=== PATIENT | female | born 1970 | race Two or more races ===

== ENCOUNTER 2023-05-02 15:20 | Outpatient (REF) | payer BC, SELFPAY ==
--- NOTE | ~2023-05-02 | US_ITS ---
EXAMINATION: US PELVIS, examination performed transvaginally and transabdominally CLINICAL INFORMATION: Postmenopausal bleeding in a 52-year-old female LMP 3 years ago COMPARISON: None available. TECHNIQUE: Ultrasound of the pelvis is performed using both transabdominal and transvaginal transducers along with Doppler. Transvaginal imaging is performed due to inadequate visualization transabdominally. FINDINGS: Uterus: The uterus is anteverted and measures 10.0 x 5.0 x 6.0 cm. The double wall endometrial thickness is 0.5 mm. There is subchondral uterine fibroid measured 2.7 x 2.5 x 3.1 cm . Adnexa: Both ovaries are visualized. There is normal color flow to the adnexa. There is no ovarian torsion. Right ovary measures 2.9 x 1.8 x 1.8 cm. With a volume of 5.0 cm and complex collection in the right adnexa. Left ovary measures 3.0 x 2.0 x 2.3 cm. With a volume of 7.0 well. There is complex cyst versus mass in left adnexa measured 2.0 x 1.5 x 1.8 cm There is moderate amount of pelvic fluid. US/US pelvic and transvaginal IMPRESSION: Complex fluid collection in the right adnexa and cul-de-sac fluid multiple calcifications in the uterus. Uterine fibroid. Complex mass versus cyst in left adnexa
== END 2023-05-02 15:21 | disposition home or self-care (01) ==
LOC: HO.US 15:20
PROVIDERS: PCP Registered Nurse; Visit Provider Advanced Practice Midwife
DX: N95.0 Postmenopausal bleeding (principal)
CPT/HCPCS: 76830; 76856

== ENCOUNTER 2023-05-08 07:48 | Outpatient (REF) | payer BC, SELFPAY ==
--- NOTE | ~2023-05-08 | MM_ITS ---
EXAMINATION: MM SCREENING DIGITAL BREAST TOMOSYNTHESIS, BILATERAL CLINICAL INFORMATION: Screening. Asymptomatic. The lifetime risk of breast cancer based on the Tyrer-Cuzick Model is 13.1%. COMPARISON: Mammography: None TECHNIQUE: Digital breast tomosynthesis is performed in both the craniocaudal and mediolateral oblique views along with computer-aided detection (CAD). Synthesized 2D images are generated from the tomosynthesis. FINDINGS: The breasts are heterogeneously dense, which may obscure small masses (ACR BI-RADS breast composition Category c). There are no significant masses, abnormal calcifications, or other abnormalities. MM/MM tomosynthesis screening BI IMPRESSION: No mammographic evidence of malignancy. ASSESSMENT: BI-RADS 1: Negative RECOMMENDATION: Routine annual mammography screening. This patient's information was entered into a reminder system with a target due date for their next mammogram.
== END 2023-05-08 07:49 | disposition home or self-care (01) ==
LOC: HO.MAMMO 07:48
PROVIDERS: Visit Provider Advanced Practice Midwife
DX: Z12.31 Encounter for screening mammogram for malignant neoplasm of breast (principal)
CPT/HCPCS: 77063; 77067

== ENCOUNTER 2023-08-23 07:53 | Outpatient (AMB) | payer BC, SELFPAY ==
[2023-08-23 08:07] VITALS: BP 116/68; BMI 30.7
--- NOTE | 2023-08-23 08:07 | A.OFFVIS_ITS ---
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 Co testing was done in 05/11 showed was negative for intraepithelial lesions, HPV E6/E7 positive, HPV 16 positive, HPV 18/45 Last mammogram was done in 05/11 was BI-RADS 1 Ultrasound of the pelvis done in 05/11 showed the following: Uterus: The uterus is anteverted and measures 10.0 x 5.0 x 6.0 cm. The double wall endometrial thickness is 0.5 mm. There is subchondral uterine fibroid measured 2.7 x 2.5 x 3.1 cm . Adnexa: Both ovaries are visualized. There is normal color flow to the adnexa. There is no ovarian torsion. Right ovary measures 2.9 x 1.8 x 1.8 cm. With a volume of 5.0 cm and complex collection in the right adnexa. Left ovary measures 3.0 x 2.0 x 2.3 cm. With a volume of 7.0 well. There is complex cyst versus mass in left adnexa measured 2.0 x 1.5 x 1.8 cm There is moderate amount of pelvic fluid. [facility] Medical History Asthma Gastritis Surgical History H/O colonoscopy Hx of adenoidectomy Hx of tonsillectomy Family History Mother HTN (hypertension) Uterine cancer Father No problems noted. Social History Household Members: Significant Other Alcohol intake: current Patient Tobacco Use Status: Never used Tobacco Current occupational status: employed Current occupation: [employer] x 2-3years Sexual orientation: Straight/Heterosexual Gender identity: Female Female Reproductive History Menstrual Total pregnancies: 0 Review of Systems Const All systems reviewed & are unremarkable except as noted in HPI and below Physical Exam Vital Signs: BMI result Body Mass Index 30.7 General: Yes no CVA tenderness External Female Exam: normal external appearance and normal appearance of the urethra Speculum Exam - Vagina: normal appearance of the vagina, normal palpation, no lesions and no masses Speculum Exam - Cervix: normal appearance of the cervix, normal palpation, no lesions, no masses and nontender Bimanual exam- vagina & uterus: normal bimanual exam, normal palpation, uterine size normal, normal palpation, uterine shape normal, No Cervical tenderness present and non-tender Bimanual Exam- Adnexa, other: normal adnexae Back/Spine/Pelvis Back: no CVA tenderness Office Procedures Colposcopy Before the procedure was started discussed with the patient the procedure, alternatives & all the risks associated with the procedure (bleeding, infection, injury to vagina, bladder, vessels, possible need for transfusion with all its risks) then patient signed the consent UPT done in the office & negative Pap smear = in [place]/HPV E6/E7 positive, HPV 16 positive, HPV 18/45 negative Speculum inserted, acetic acid used Colposcopy done Transformation zone seen, acetowhite lesions identified at 5+6+7+9+11+12+1+3 o?clock, cervical biopsies taken from 5+6+7+9+11+12+1+3 o?clock, ECC done afterwards. Vaginoscopy of the upper vagina showed no evidence of any aceto-white lesions Monsel solution used for hemostasis. The patient tolerated well . At the end the patient was instructed to call if temp>100.4, abdominal pain, n/v, bleeding; The patient was given the following instructions: nothing per vagina, no intercourse or bath tub use. All questions answered the patient verbalized understanding. Instructed the patient to make an appointment in 2 weeks for follow-up This note was generated with a voice recognition program. Some errors may have been overlooked during the review of this note. Sometimes these errors may affect the content or meaning of a given sentence. [id number] of cervix including upper vagina with biopsy and ECC Procedure code (CPT) selection complete Assessment & Plan Assessment & Plan (1) Postmenopausal bleeding: Comment: Endometrial stripe 5 mm by ultrasound Code(s): N95.0 - Postmenopausal bleeding Plan: Discussed with the patient the pelvic ultrasound findings, the endometrial stripe thickenss measured by ultrasound was more than 4mm. The negative predictive value, positive predictive value, Sensitivity, specificity of using ultrasound measurement of endometrial stripe to detecting endometrial pathology including hyperplasia , polyp or cancer were discussed with the patient. Recommended to the patient that the next step is an endometrial sampling via hysteroscopy D&C possible polypectomy versus endometrial biopsy to r/o endometrial pathology including hyperplasia or cancer. All the pros and cons risks and benefits of each approach were discussed with the patient, the patient decided to go ahead with endometrial biopsy;attempted EMB could not be tolerated by the patient, the procedure was aborted per patient request, will proceed with scheduling hysteroscopy D&C possible polypectomy/myomectomy next visit after checking the pathology of the cervical biopsy/ECC and the results of the follow- up ultrasound. Instructions given the patient to schedule a 2 week preop visit. (2) Uterine myoma: Code(s): D25.9 - Leiomyoma of uterus, unspecified Plan: Discussed with the patient the findings on pelvic ultrasound & the risk of myosarcoma; discussed with the patient the options of treatment including expectant management versus hysterectomy; the pros and cons, risks benefits of each approach were discussed with the patient including the fact that in cases of myosarcoma, surgical treatment can lead to early diagnosis and positively affects the prognosis; Since last ultrasound was 3 months ago, will repeat pelvic ultrasound. Instructions given the patient to schedule a 2 week ultrasound follow-up appointment to discuss different options of treatment. All questions answered, the patient verbalized understanding and agreed with the plan . (3) Adnexal mass: Code(s): N94.89 - Other specified conditions associated with female genital organs and menstrual cycle Plan: Discussed with the patient the complex ovarian cyst by ultrasound. Discussed with the patient the Ultrasound findings, the main limitation of transvaginal ultrasonography alone as a diagnostic tool to distinguish benign from malignant masses relates to its lack of specificity and low positive predictive value for cancer. The differential diagnosis discussed with the patient includes the following but not limited to: benign and malignant gynecological and non-gynecological causes. Laboratory evaluation include UPT and GC/CT. Since ultrasound was done in 6/23 repeat pelvic ultrasound if persistent abnormalities will proceed with MRI of the pelvis and tumor markers. (4) Cervical high risk HPV (human papillomavirus) test positive: Code(s): R87.810 - Cervical high risk human papillomavirus (HPV) DNA test positive Plan: Discussed with the patient the result of her pap, positive high-risk HPV, its significance, risk of progression, persistence, and regression if untreated. the false positive/negative rate being a screening test, the need for diagnostic test -colposcopy, biopsy, endocervical curettage. The patient verbalized understanding and agreed with the plan, all questions answered. Colposcopy/ECC and biopsy done, see procedure note. Orders: Orders US pelvic and transvaginal Today D25.9 - Leiomyoma of uterus, unspecified, N94.89 - Other specified conditions associated with female genital organs and menstrual cycle AMB Colposcopy Today R87.810 - Cervical high risk human papillomavirus (HPV) DNA test positive Coding Level of Care Code New Pt Level 3 (81091) Procedure Only Diagnoses Postmenopausal bleeding N95.0 Uterine myoma D25.9 Adnexal mass N94.89 Cervical high risk HPV (human papillomavirus) test positive R87.810 CPT Codes Colposcopy - CPT: 77376-Mdphcptye of cervix including upper vagina with biopsy and ECC ([id number])
== END 2023-08-23 08:52 | disposition home or self-care (01) ==
PROVIDERS: PCP Registered Nurse; Visit Provider Obstetrics & Gynecology
DX: N95.0 Postmenopausal bleeding (principal); D25.9 Leiomyoma of uterus, unspecified; N94.89 Other specified conditions associated with female genital organs and menstrual cycle; R87.810 Cervical high risk human papillomavirus (HPV) DNA test positive
CPT/HCPCS: 57454; 99203

== ENCOUNTER 2023-08-23 07:53 | Outpatient (REF) | payer BC, SELFPAY | END 2023-08-23 07:54 | disposition home or self-care (01) | LOC: HO.LNP 07:53 | PROVIDERS: PCP Registered Nurse; Visit Provider Obstetrics & Gynecology | DX: R87.810 Cervical high risk human papillomavirus (HPV) DNA test positive (principal); N95.0 Postmenopausal bleeding; D25.9 Leiomyoma of uterus, unspecified; N94.89 Other specified conditions associated with female genital organs and menstrual cycle | CPT/HCPCS: 57454; 88305 ==

== ENCOUNTER 2023-09-24 11:04 | Outpatient (REF) | payer BC, SELFPAY ==
--- NOTE | ~2023-09-24 | US_ITS ---
EXAMINATION: US PELVIS CLINICAL INFORMATION: Postmenopausal bleeding. COMPARISON: 05/02/2023 TECHNIQUE: Ultrasound of the pelvis is performed using both transabdominal and transvaginal transducers along with Doppler. Transvaginal imaging is performed due to inadequate visualization transabdominally. FINDINGS: The uterus is anteverted, heterogeneous and measures 6.8 x 3.8 x 4.7 cm, volume 63.59 mL. The endometrium appears heterogeneous with approximate double wall thickness of 0.2 cm, although evaluation limited due to uterine heterogeneity. Small amount of free fluid in the pelvis. Echogenic foci scattered throughout the uterus characteristic of calcifications, possibly related to fibroid change. A 1.1 x 0.9 x 0.8 cm fundal fibroid previously measured 2.7 x 2.5 x 3.1 cm. Small 4 mm cystic area at the uterine fundus. Right ovary measures 1.6 x 1.1 x 1.4 cm, volume 1.3 mL, and is unremarkable. Left ovary measures 2.5 x 1.3 x 1.5 cm, volume 2.6 mL, and is unremarkable. US/US pelvic and transvaginal IMPRESSION: 1. Fibroid uterus. 2. Endometrium appears heterogeneous with approximate double wall thickness of 0.2 cm, although evaluation limited due to uterine heterogeneity. Gynecologic consultation recommended to determine further management for this patient with postmenopausal bleeding. 3. Unremarkable bilateral ovaries. 4. Small amount of free fluid in the pelvis.
== END 2023-09-24 11:05 | disposition home or self-care (01) ==
LOC: HO.US 11:04
PROVIDERS: PCP Registered Nurse; Visit Provider Obstetrics & Gynecology
DX: N94.89 Other specified conditions associated with female genital organs and menstrual cycle (principal); D25.9 Leiomyoma of uterus, unspecified
CPT/HCPCS: 76830; 76856

== ENCOUNTER 2023-10-08 07:37 | Outpatient (AMB) | payer BC, SELFPAY ==
--- NOTE | 2023-10-08 07:45 | MHC.OFFVIS ---
Intake Vital Signs 10/08/23 07:46 Height 5 ft 2 in Weight 167 lb 8.821 oz BMI 30.6 BP 120/76 Intake Visit Reasons: US Follow up/Pre-Op Food Beverage Server Required: Yes Food Beverage Server Language: Support Services Coordinator Name: Anusha THORNTON Information Interpreted: non-clinical & clinical Manager Software Development: Manager Software Development Present Allergies No Known Allergies Allergy (Verified 10/08/23 07:48) Is last menstrual period known: Yes Last menstrual period: 09/16/20 Post menopausal: Yes Patient : No Do you need a note to return to daycare/school/sports/work: Yes (for surgery on sunday) HPI HPI Comments History of Present Illness Details Presenting post colpo for follow-up and for ultrasound follow-up. The patient is doing well with no complaints. The pathology showed the following: A. Endocervix, curettage: Few superficial strips of endocervical and squamous epithelium within normal limits; mucoinflammatory material. B. Cervix, 1 o'clock, biopsy: Cervical transformation zone mucosa within normal limits. C. Cervix, 3 o'clock, biopsy: Mildly inflamed squamous mucosa with reactive changes; no endocervical epithelium present. D. Cervix, 6 o'clock, biopsy: Mildly inflamed squamous and endocervical mucosa with reactive changes. E. Cervix, 7 o'clock, biopsy: Mildly inflamed squamous and endocervical mucosa with reactive changes. F. Cervix, 9 o'clock, biopsy: Mildly inflamed squamous and endocervical mucosa with reactive changes. G. Cervix, 11 o'clock, biopsy: Mildly inflamed squamous and endocervical mucosa with reactive changes. H. Cervix, 12 o'clock, biopsy: Mildly inflamed squamous mucosa with reactive changes; no endocervical epithelium present Pelvic ultrasound repeated showed the following: The uterus is anteverted, heterogeneous and measures 6.8 x 3.8 x 4.7 cm, volume 63.59 mL. The endometrium appears heterogeneous with approximate double wall thickness of 0.2 cm, although evaluation limited due to uterine heterogeneity. Small amount of free fluid in the pelvis. Echogenic foci scattered throughout the uterus characteristic of calcifications, possibly related to fibroid change. A 1.1 x 0.9 x 0.8 cm fundal fibroid previously measured 2.7 x 2.5 x 3.1 cm. Small 4 mm cystic area at the uterine fundus. Right ovary measures 1.6 x 1.1 x 1.4 cm, volume 1.3 mL, and is unremarkable. Left ovary measures 2.5 x 1.3 x 1.5 cm, volume 2.6 mL, and is unremarkable. [facility] Medical History Asthma Gastritis Surgical History H/O colonoscopy Hx of adenoidectomy Hx of tonsillectomy Family History Mother HTN (hypertension) Uterine cancer Father No problems noted. Social History Household Members: Significant Other Alcohol intake: current Patient Tobacco Use Status: Never used Tobacco Current occupational status: employed Current occupation: [employer] x 2-3years Sexual orientation: Straight/Heterosexual Gender identity: Female Female Reproductive History Menstrual Date of last menstrual period: 09/16/20 Total pregnancies: 2 Full term: 2 Review of Systems Card Reports as per HPI and Reports no additional complaints Resp Reports as per HPI and Reports no additional complaints GI Reports as per HPI and Reports no additional complaints Reports as per HPI Physical Exam Vital Signs: Last Vital Signs BP 120/76 10/08/23 07:46 BMI result Body Mass Index 30.6 Const General: cooperative, healthy appearing and comfortable Chest Chest palpation & inspection: normal inspection of the chest and normal palpation of entire chest wall Breast/axilla inspection: normal inspection of the breasts and normal inspection of the axillae Breast/axilla palpation: normal palpation of the breasts, normal palpation of the axillae and no axillary lymphadenopathy Resp Effort & Inspection: normal respiratory effort Auscultation: clear to auscultation bilaterally Percussion: percussion normal Cardio Palpation: normal PMI Rate: regular rate Rhythm: regular rhythm Heart sounds: no murmurs and no rubs Peripheral pulses: Peripheral pulses 2+ throughout GI Inspection: Yes normal to inspection Palpation (GI): Soft to palpation, nontender, no guarding, not rigid and No hepatosplenomegaly present Percussion: Yes normal to percussion Auscultation: normal bowel sounds Rectal Exam - Female: deferred Assessment & Plan Assessment & Plan (1) Adnexal mass: Code(s): N94.89 - Other specified conditions associated with female genital organs and menstrual cycle Plan: Discussed with the patient ultrasound findings showing the previously identified complex cyst has resolved. The patient was instructed to call if symptoms recur. All questions were answered the patient verbalized understanding. (2) Postmenopausal bleeding: Code(s): N95.0 - Postmenopausal bleeding Plan: Endometrial stripe measured previously was 5 mm, recent ultrasound endometrial type measure 2 mm although evaluation limited due to uterine heterogeneity Discussed with the patient the pelvic ultrasound findings, the endometrial stripe thickenss measured by ultrasound was more than 4mm on previous ultrasound and questionable 2 mm with inadequate measurement with a recent ultrasound. The negative predictive value, positive predictive value, Sensitivity, specificity of using ultrasound measurement of endometrial stripe to detecting endometrial pathology including hyperplasia , polyp or cancer were discussed with the patient. Recommended to the patient that the next step is an endometrial sampling via hysteroscopy D&C possible polypectomy versus endometrial biopsy to r/o endometrial pathology including hyperplasia or cancer. All the pros and cons risks and benefits of each approach were discussed with the patient, endometrial biopsy being less invasive, office procedure with less sensitivity and inability diagnose a polyp and removal versus hysteroscopy done under anesthesia more invasive more sensitive to endometrial cancer and possibility of diagnosing and endometrial polyp with the possibility of polypectomy. All questions were answered pt verbalized understanding and decided to proceed with hysteroscopy D&C possible polypectomy Discussed with the patient the procedure , all benefits and risks including but not limited to inability to complete the procedure , bleeding, infection, possible need for blood transfusion with all its risk ( HIV,syphilis, Hepatitis, anaphylaxis shock, others..), injury to bladder, rectum, possible need for laparoscopy/laparotomy or hysterectomy. The patient verbalized understanding and signed the consent. Instructions given the patient to schedule a 2 week postoperative appointment (3) Cervical high risk HPV (human papillomavirus) test positive: Code(s): R87.810 - Cervical high risk human papillomavirus (HPV) DNA test positive Plan: Discussed with the patient the pathology results of the colposcopy biopsies & endocervical curettage ( negative). Discussed with the patient the sensitivity specificity, positive and negative predictive value in detecting cervical cancer in addition discussed the regression, persistence and progression rates. Recommended co-testing in 12 months, if cytology and or HPV are abnormal will proceed was colposcopy biopsy and endocervical curettage. Instructions given to the patient to schedule a co test appointment in 1 year. All questions answered the patient verbalized understanding. Coding Level of Care Code Est Pt Level 3 (20696) Diagnoses Adnexal mass N94.89 Postmenopausal bleeding N95.0 Cervical high risk HPV (human papillomavirus) test positive R87.810
[2023-10-08 07:46] VITALS: BP 120/76; BMI 30.6
== END 2023-10-08 08:16 | disposition home or self-care (01) ==
PROVIDERS: PCP Registered Nurse; Visit Provider Obstetrics & Gynecology
DX: N94.89 Other specified conditions associated with female genital organs and menstrual cycle (principal); N95.0 Postmenopausal bleeding; R87.810 Cervical high risk human papillomavirus (HPV) DNA test positive
CPT/HCPCS: 99213

== ENCOUNTER → 2023-10-08 07:37 | Outpatient (BNVA) | payer BC, SELFPAY | PROVIDERS: PCP Registered Nurse; Visit Provider Obstetrics & Gynecology ==

== ENCOUNTER 2023-12-03 11:01 | Outpatient (AMB) | payer BC, SELFPAY ==
--- NOTE | 2023-12-03 11:04 | A.OFFVIS_ITS ---
Intake Vital Signs 12/03/23 11:05 Height 5 ft 2 in Weight 167 lb BMI 30.5 BP 118/70 Intake Visit Reasons: Pre-op Housing Relocation Required: Yes Housing Relocation Language: Mobility Architect Manager Name: Cecily [id number] Material Coordinator: Material Coordinator Present Allergies No Known Allergies Allergy (Verified 12/03/23 11:08) Is last menstrual period known: No Post menopausal: Yes Patient : No Do you need a note to return to daycare/school/sports/work: Yes (for surgery on sunday) HPI HPI Comments History of Present Illness Details Present discussed the pelvic ultrasound results which showed the following: The endometrium appears heterogeneous with approximate double wall thickness of 0.2 cm, although evaluation limited due to uterine heterogeneity. PFSH Medical History Asthma Gastritis Surgical History H/O colonoscopy Hx of adenoidectomy Hx of tonsillectomy Family History Mother HTN (hypertension) Uterine cancer Father No problems noted. Social History Household Members: Significant Other Alcohol intake: current Patient Tobacco Use Status: Never used Tobacco Patient : No Current occupational status: employed Current occupation: [employer] x 2-3years Sexual orientation: Straight/Heterosexual Gender identity: Female Female Reproductive History Menstrual Date of last menstrual period: 09/16/20 control method: none Total pregnancies: 2 Full term: 2 Review of Systems Card Reports as per HPI and Reports no additional complaints Resp Reports as per HPI and Reports no additional complaints GI Reports as per HPI and Reports no additional complaints Reports as per HPI Physical Exam Vital Signs: Last Vital Signs BP 118/70 12/03/23 11:05 BMI result Body Mass Index 30.5 Const General: cooperative, healthy appearing and comfortable Resp Effort & Inspection: normal respiratory effort Auscultation: clear to auscultation bilaterally Percussion: percussion normal Cardio Palpation: normal PMI Rate: regular rate Rhythm: regular rhythm Heart sounds: no murmurs and no rubs Peripheral pulses: Peripheral pulses 2+ throughout GI Inspection: Yes normal to inspection Palpation (GI): Soft to palpation, nontender, no guarding, not rigid and No hepatosplenomegaly present Percussion: Yes normal to percussion Auscultation: normal bowel sounds Rectal Exam - Female: deferred Assessment & Plan Assessment & Plan (1) Postmenopausal bleeding: Code(s): N95.0 - Postmenopausal bleeding Plan: Discussed with the patient the pelvic ultrasound findings, the endometrial stripe thickenss measured by ultrasound was more than 4mm on previous ultrasound and questionable 2 mm with inadequate measurement with a recent ultrasound. The negative predictive value, positive predictive value, Sensitivity, specificity of using ultrasound measurement of endometrial stripe to detecting endometrial pathology including hyperplasia , polyp or cancer were discussed with the patient. Recommended to the patient that the next step is an endometrial sa mpling via hysteroscopy D&C possible polypectomy versus endometrial biopsy to r/o endometrial pathology including hyperplasia or cancer. All the pros and cons risks and benefits of each approach were discussed with the patient, endometrial biopsy being less invasive, office procedure with less sensitivity and inability diagnose a polyp and removal versus hysteroscopy done under anesthesia more invasive more sensitive to endometrial cancer and possibility of diagnosing and endometrial polyp with the possibility of polypectomy. All questions were answered pt verbalized understanding and decided to proceed with hysteroscopy D&C possible polypectomy Discussed with the patient the procedure , all benefits and risks including but not limited to inability to complete the procedure , insufficient endometrial tissue for a complete evaluation of the endometrial cavity , bleeding, infection, possible need for blood transfusion with all its risk ( HIV,syphilis, Hepatitis, anaphylaxis shock, others..), injury to bladder, rectum, possible need for laparoscopy/laparotomy or hysterectomy. The patient verbalized understanding and signed the consent. Instructions given the patient to schedule a 2 week postoperative appointment Coding Level of Care Code Est Pt Level 3 (77559) Diagnoses Postmenopausal bleeding N95.0
[2023-12-03 11:05] VITALS: BP 118/70; BMI 30.5
== END 2023-12-03 11:27 | disposition home or self-care (01) ==
LOC: HO.HWS 11:02
PROVIDERS: PCP Registered Nurse; Visit Provider Obstetrics & Gynecology
DX: N95.0 Postmenopausal bleeding (principal)
CPT/HCPCS: 99213

== ENCOUNTER → 2023-12-03 11:01 | Outpatient (BNVA) | payer BC, SELFPAY | PROVIDERS: PCP Registered Nurse; Visit Provider Obstetrics & Gynecology ==

== ENCOUNTER 2023-12-21 10:44 | Day surgery (SDC) | payer BC, SELFPAY ==
[2023-10-24 10:11] VITALS: BMI 30.6
--- NOTE | 2023-10-24 14:08 | P.CONAN_ITS ---
HPI - Anesthesia Eval Consult details Narrative: 52yo F for D&C Hysteroscopy possible myomectomy/polypectomy, 12/07/23 PMFSH Active Problems Active Problems: All Active Problems (Updated 10/08/23 @ 07:56 by Minor Brown MD) Cervical high risk HPV (human papillomavirus) test positive (Acute) Adnexal mass (Acute) Uterine myoma (Acute) Postmenopausal bleeding (Acute) Past Medical History Medical History Asthma Gastritis Family History Family History Mother HTN (hypertension) Uterine cancer Father No problems noted. Surgical History Surgical History H/O colonoscopy Hx of adenoidectomy Hx of tonsillectomy Social History Social History Household Members: Significant Other Alcohol intake: current Patient Tobacco Use Status: Never used Tobacco Current occupational status: employed Current occupation: [employer] x 2-3years Sexual orientation: Straight/Heterosexual Gender identity: Female Meds Allergies Allergy/AdvReac Type Severity Reaction Status Date / Time No Known Allergies Allergy Verified 10/08/23 07:48 Home Medications Medication Instructions Recorded Confirmed Last Taken Type albuterol sulfate 90 mcg/actuation 2 puff inhalation Q4-6H PRN 01/18/23 01/18/23 Unknown History aerosol inhaler (ProAir HFA) Shortness Of Breath cetirizine 10 mg tablet (Zyrtec) 10 mg PO DAILY PRN 08/23/23 Unknown History Exam Height,Weight and Vital Signs: Height 5 ft 2 in Weight 75.977 kg Assessment and Plan Assessment Anesthesia Assessment: Chart Reviewed
[2023-12-19 07:49] VITALS: BMI 30.5
--- NOTE | 2023-12-20 10:30 | HO.ANESPROP2 ---
Documented by User: Monae Ivy NP 12/20/23 10:31 HPI - Anesthesia Eval Consult details Narrative: 53yo F for Dilation and Curettage Hysteroscopy possible myometomy/polypectomy PMFSH Active Problems Active Problems: All Active Problems (Updated 10/08/23 @ 07:56 by Minor Brown MD) Cervical high risk HPV (human papillomavirus) test positive (Acute) Adnexal mass (Acute) Uterine myoma (Acute) Postmenopausal bleeding (Acute) Past Medical History Medical History Asthma Gastritis Family History Family History Mother HTN (hypertension) Uterine cancer Father No problems noted. Surgical History Surgical History H/O colonoscopy Hx of adenoidectomy Hx of tonsillectomy Social History Social History Household Members: Significant Other Alcohol intake: current Alcohol intake frequency: does not drink Patient Tobacco Use Status: Never used Tobacco Are you DNR?: No Advance Directives: No Advance Directives Information Provided: Yes Recently lost weight without trying: No Nutrition Risks: No Nutritional Risk Patient : No FDLMP: menopausal Current occupational status: employed Current occupation: [employer] x 2-3years Sexual orientation: Straight/Heterosexual Gender identity: Female Meds Allergies Allergy/AdvReac Type Severity Reaction Status Date / Time No Known Allergies Allergy Verified 12/03/23 11:08 Home Medications Medication Instructions Recorded Confirmed Last Taken Type albuterol sulfate 90 mcg/actuation 2 puff inhalation Q4-6H PRN 01/18/23 01/18/23 Unknown History aerosol inhaler (ProAir HFA) Shortness Of Breath Exam Height,Weight and Vital Signs: Height 5 ft 2 in Weight 75.75 kg Assessment and Plan Assessment Anesthesia Assessment: Chart Reviewed Documented by User: Balbina Mercado MD 12/21/23 11:39 [facility] Past Medical History Medical History Asthma Gastritis Family History Family History Mother HTN (hypertension) Uterine cancer Father No problems noted. Family history of problems with anesthesia: No Surgical History Surgical History H/O colonoscopy Hx of adenoidectomy Hx of tonsillectomy History of Problems with Anesthesia: No Social History Social History Household Members: Significant Other Alcohol intake: current Alcohol intake frequency: does not drink Patient Tobacco Use Status: Never used Tobacco Are you DNR?: No Advance Directives: No Advance Directives Information Provided: Yes Recently lost weight without trying: No Nutrition Risks: No Nutritional Risk Patient : No FDLMP: menopausal Current occupational status: employed Current occupation: [employer] 2-3years Sexual orientation: Straight/Heterosexual Gender identity: Female Meds Allergies Allergy/AdvReac Type Severity Reaction Status Date / Time No Known Allergies Allergy Verified 12/03/23 11:08 Home Medications Medication Instructions Recorded Confirmed Last Taken Type albuterol sulfate 90 mcg/actuation 2 puff inhalation Q4-6H PRN 01/18/23 01/18/23 Unknown History aerosol inhaler (ProAir HFA) Shortness Of Breath Exam Airway Mallampati Class: I TM Dist: >3cm Neck ROM: Full Heart: rrr Lungs: cta Assessment and Plan Assessment Anesthesia Assessment: Anesthesia Plan Discussed Final Anesthetic Review Family History of Problems with Anesthesia: No History of Problems with Anesthesia: No NPO: Yes ASA Class: II Final Preanesthetic Review: No Changes in Pt Med Stat, Meds/Allgs Chart Reviewed and Consent Obtained/Reviewed Patient Risk: Intermediate Procedure Risk: Intermediate Anesthetic Plan Anesthetic Plan: GA Disposition: Standard PACU
[2023-12-21] VITALS (7 sets, daily range): BP systolic 111–141; BP diastolic 56–83; PULSE 46–75; RESP 12–19; TEMP 36.4–36.7; O2SAT 78–100; BMI 30.6
[2023-12-21] MEDS: Lactated Ringers 1,000 ML 100 ML IVCONT (11:13)
--- NOTE | 2023-12-21 12:11 | MHC.SHP ---
Pre-Procedural Eval Section A - 24 Hr Update-Section A only Date of Service: 12/21/23 The patient is an INPATIENT: No Changes since office visit: No Cold of Flu in the past 2 weeks, No New Medical Problems, No Changes in Medication and No Patient answered all questions The patient has been examined within 24 hours of the surgical procedure. The History & Physical has been completed within 30 days and I have reviewed it.: Yes Section B - Complete if H&P > 30 days Chief Complaint: Postmenopausal bleeding Allergies: Allergies Allergy/AdvReac Type Severity Reaction Status Date / Time No Known Allergies Allergy Verified 12/03/23 11:08 Plan Diagnosis/Plan: Unchanged I have reviewed the history and physical and performed a pertinent physical examination on my patient. No changes have occurred unless specified. Time Spent With Patient Time: Total time managing care of this patient today ____ minutes.
--- NOTE | 2023-12-21 13:13 | P.BOP_ITS ---
Brief Operative Note Date of Service: 12/21/23 Pre-op diagnosis: Postmenopausal bleeding Post-op diagnosis: same (Endocervical polyp) Procedure: Hysteroscopy D&C, Polypectomy Surgeon: Minor Brown MD Anesthesia: GLMA Was an Continuous Process Coffee Roaster used for this Procedure?: No Estimated blood loss (mL): 0 Pathology: other (Endometrial Scrapping. Endocervix Polyp) Condition: stable Disposition: PACU
--- NOTE | 2023-12-21 13:14 | W.PM.OPN ---
Operative Note Operative Note Date of Service: 12/21/23 Narrative: Preop Diagnosis: Postmenopausal bleeding Operation: Diagnostic Hysteroscopy, Dilataion & Curettage and endocervical polypectomy Post Op Diagnosis: Endocervical Polyp QBL: Minimal Anesthesia: GLMA Surgeon: Minor Brown MD Aws Solution Architect: None Complication: None Pathology: Endometrial Scrapings, endocervical polyp Procedure: The patient was put in the dorsal lithotomy position, scrubbed, and draped in the usual manner. A sterile speculum was inserted in the patient's vagina. The anterior lip of the cervix was grasped with a single tooth tenaculum. The cervix was dilated up to 5 mm, then the scope was inserted in the patient's uterus. Inspection revealed endocervical polyp. The Myosure Reach device was used; it was introduced through the operative channel and endocervical polypectomy done with no complications. The scope was then taken out from the uterine cavity, sharp curettings was carried on with minimal to moderate amount of tissues retrieved. At the end of the procedure, all instruments were taken out of the patient uterine and vaginal cavity. The single tooth tenaculum was removed and homeostasis was assured using pressure,. The patient tolerated the procedure well and was transferred to the PACU in a stable condition.
[2023-12-21] MEDS: oxyCODONE HCl Immed Release 5 MG TABLET PO (13:30)
== END 2023-12-21 14:15 | disposition home or self-care (01) ==
PROVIDERS: PCP Registered Nurse; Visit Provider Obstetrics & Gynecology
PROC: 0UDB8ZZ Extraction of Endometrium, Via Natural or Artificial Opening Endoscopic (ICD-10-PCS; CPT 58558; principal; 2023-12-21 12:30)
DX: N95.0 Postmenopausal bleeding (principal); N84.1 Polyp of cervix uteri; J45.909 Unspecified asthma, uncomplicated; Z79.899 Other long term (current) drug therapy
CPT/HCPCS: 58558; 88305; J1885; J2405; J2704; J3010

== ENCOUNTER → 2023-12-21 10:44 | Outpatient (BNV) | payer BC, SELFPAY | PROVIDERS: PCP Registered Nurse; Visit Provider Obstetrics & Gynecology | DX: N84.1 Polyp of cervix uteri (principal) | CPT/HCPCS: 58558 ==

== ENCOUNTER 2024-01-01 08:32 | Outpatient (AMB) | payer BC, SELFPAY ==
--- NOTE | 2024-01-01 08:43 | MHC.OFFVIS ---
Intake Vital Signs 01/01/24 08:47 Height 5 ft 2 in Weight 167 lb BMI 30.5 BP 110/72 Intake Visit Reasons: post op Level Vial Setter Required: Yes Level Vial Setter Language: Narcotics Detective Name: Anusha THORNTON Information Interpreted: non-clinical & clinical Accompanied by: Self / Same As Patient Allergies No Known Allergies Allergy (Verified 01/01/24 08:48) HPI HPI Comments History of Present Illness Details The patient is presenting post hysteroscopy D&C no complaints minimal vaginal bleeding no feverishness chills or abdominal pain. The pathology showed the following: A. Endometrium, curettage: Scant benign atrophic endometrium; no atypia or carcinoma. B. Endocervical polyp, resection: Fragments of benign inactive endometrium with benign smooth muscle, suggesting adenomyosis/adenomyoma, and fragments of benign mixed endometrial/endocervical polyp; no atypia or carcinoma PFSH Medical History Asthma Gastritis Surgical History H/O colonoscopy Hx of adenoidectomy Hx of tonsillectomy Family History Mother HTN (hypertension) Uterine cancer Father No problems noted. Social History Household Members: Significant Other Alcohol intake: current Alcohol intake frequency: does not drink Patient Tobacco Use Status: Never used Tobacco Current occupational status: employed Current occupation: [employer] x 2-3years Sexual orientation: Straight/Heterosexual Gender identity: Female Review of Systems Const All systems reviewed & are unremarkable except as noted in HPI and below Reports as per HPI and Reports no additional complaints GI Reports no additional complaints Reports no additional complaints Physical Exam Vital Signs: Last Vital Signs BP 110/72 01/01/24 08:47 BMI result Body Mass Index 30.5 Assessment & Plan Assessment & Plan (1) Postmenopausal bleeding: Code(s): N95.0 - Postmenopausal bleeding Plan: Discussed with the patient the results of the pathology. Discussed with the patient the sensitivity, specificity, positive and negative predictive value, of endometrial biopsy in detecting endometrial pathology including but not limited to endometrial hyperplasia, cancer and other pathology; instructed the patient to call in case vaginal bleeding bleeding recurs, the next step will be to proceed with further endometrial sampling evaluation to rule out endometrial pathology. All questions answered and the patient verbalized understanding and agreed with the plan. Coding Level of Care Code Est Pt Level 3 (46323) Diagnoses Postmenopausal bleeding N95.0
[2024-01-01 08:47] VITALS: BP 110/72; BMI 30.5
== END 2024-01-01 09:05 | disposition home or self-care (01) ==
LOC: HO.HWS 08:32
PROVIDERS: PCP Registered Nurse; Visit Provider Obstetrics & Gynecology
DX: N95.0 Postmenopausal bleeding (principal)
CPT/HCPCS: 99213

== ENCOUNTER → 2024-01-01 08:32 | Outpatient (BNVA) | payer BC, SELFPAY | PROVIDERS: PCP Registered Nurse; Visit Provider Obstetrics & Gynecology ==

== ENCOUNTER 2025-02-10 11:24 | Outpatient (REF) | payer BC, SELFPAY ==
[2025-02-13 14:54] LABS: HPV Genotype 16 Positive (Negative); HPV Genotype 18 Negative (Negative); HPV High Risk Negative (Negative)
== END 2025-02-10 11:25 | disposition home or self-care (01) ==
LOC: HO.LNP 11:24
PROVIDERS: PCP Registered Nurse; Visit Provider Obstetrics & Gynecology
DX: Z01.419 Encounter for gynecological examination (general) (routine) without abnormal findings (principal)
CPT/HCPCS: 87626; 88175

== ENCOUNTER 2025-02-10 11:24 | Outpatient (AMB) | payer BC, SELFPAY ==
--- NOTE | 2025-02-10 11:35 | A.OFFVIS_ITS ---
Vital Signs 02/10/25 11:39 Height 5 ft 2 in Weight 168 lb BMI 30.7 BP 116/72 Intake Visit Reasons: annual/DO NOT RS 2 Fitness Specialist Required: Yes Fitness Specialist Language: Medication Administration Professional Services: Fitness Specialist Present (in person) Fitness Specialist Name: HILLARY Lynn Information Interpreted: non-clinical & clinical Surgical Supply Assistant: Surgical Supply Assistant Present (HILLARY Lynn) Accompanied by: Self / Same As Patient Allergies No Known Allergies Allergy (Verified 02/10/25 11:40) Is last menstrual period known: No Post menopausal: Yes Patient : No HPI Comments Details: Presenting for annual exam. No complaints. Co testing was done in 05/11 showed was negative for intraepithelial lesions, HPV E6/E7 positive, HPV 16 positive, HPV 18/45 negative, colpo biopsy ECC were negative Last Mammogram were in 05/11, BI-RADS 1, the patient is scheduled next mammogram in few weeks Colonoscopy is scheduled in 05/13 [facility] Medical History (Updated 02/10/25 @ 11:44 by Minor Brown MD) Cervical high risk HPV (human papillomavirus) test positive Asthma Gastritis Surgical History H/O colonoscopy Hx of adenoidectomy Hx of tonsillectomy Family History Mother HTN (hypertension) Uterine cancer Father No problems noted. Social History Household Members: Significant Other Alcohol intake: current Alcohol intake frequency: does not drink Patient Tobacco Use Status: Never used Tobacco Patient : No Current occupational status: employed Current occupation: [employer] x 2-3years Sexual orientation: Straight/Heterosexual Gender identity: Female Female Reproductive History Menstrual Total pregnancies: 0 Date of last pap smear: 05/08/23 (+hpv) History of abnormal pap smear: Yes Date of Mammogram: 05/08/23 (bi rad 1) Review of Systems Const All systems reviewed & are unremarkable except as noted in HPI and below Card Reports as per HPI Resp Reports as per HPI GI Reports as per HPI and Reports no additional complaints Reports as per HPI Physical Exam Vital Signs: Last Vital Signs BP 116/72 02/10/25 11:39 BMI result Body Mass Index 30.7 Const General: cooperative, healthy appearing and comfortable Chest Chest palpation & inspection: normal inspection of the chest and normal palpation of entire chest wall Breast/axilla inspection: normal inspection of the breasts and normal inspection of the axillae Breast/axilla palpation: normal palpation of the breasts, normal palpation of the axillae and no axillary lymphadenopathy Resp Effort & Inspection: normal respiratory effort Auscultation: clear to auscultation bilaterally Percussion: percussion normal Cardio Palpation: normal PMI Rate: regular rate Rhythm: regular rhythm Heart sounds: no murmurs and no rubs Peripheral pulses: Peripheral pulses 2+ throughout GI Inspection: Yes normal to inspection Palpation (GI): Soft to palpation, nontender, no guarding, not rigid and No hepatosplenomegaly present Percussion: Yes normal to percussion Auscultation: normal bowel sounds Rectal Exam - Female: deferred General: Yes bladder normal to palpation External Female Exam: No lesion Speculum Exam - Vagina: normal appearance of the vagina, normal palpation, normal vaginal discharge and not erythematous Speculum Exam - Cervix: normal appearance of the cervix and normal palpation Bimanual exam- vagina & uterus: normal bimanual exam, normal palpation, uterine size normal, bladder normal to palpation, consistency normal and normal palpation Bimanual Exam- Adnexa, other: normal adnexae, no masses and no tenderness Assessment & Plan Assessment & Plan (1) Well woman exam: Code(s): Z01.419 - Encounter for gynecological examination (general) (routine) without abnormal findings Category: Medical Plan: Co testing done. Counseled the patient about the recommended dietary allowance of 1200 mg of Calcium & 600 IU of vitamin D. Mammogram scheduled in few weeks. Screening colonoscopy please schedule an 05/13 . The patient was instructed to perform monthly self-breast exams and schedule annual exam in a year. All questions answered and the patient verbalized understanding. Coding Level of Care Code Est Pt Prev Care 40-64y(82289) Diagnoses Well woman exam Z01.419
[2025-02-10 11:39] VITALS: BP 116/72; BMI 30.7
--- OUTSIDE RECORDS SUMMARY | 2025-02-10 14:09 | XMS_ITS | Clinical Summary ---
Author Organization [facility] Address [address] [place] [address] Care Team Providers Care Financial Service Professional Name Role Phone Unknown Primary Care Provider [phone] Allergies No known active allergies Medications Medication Sig Dispensed Refills Start Date End Date Status OMEprazole (PriLOSEC) 20 MG capsuleIndications:Ga stroesophageal reflux disease, unspecified whether esophagitis present Take 1 capsule (20 mg total) by mouth every morning before breakfast. 14 capsule 10/02/2024 Active Active Problems No known active problems Social History Tobacco Use Types Packs/Day Years Used Date Smoking Tobacco: Never Assessed Sex and Gender Information Value Date Recorded Sex Assigned at Not on file Gender Identity Not on file Sexual Orientation Not on file Last Filed Vital Signs Vital Sign Reading Time Taken Comments Blood Pressure 121/80 10/02/2024 6:28 PM EST Pulse 75 10/02/2024 6:28 PM EST Temperature 36.7 ??C (98 ??F) 10/02/2024 6:28 PM EST Respiratory Rate - - Oxygen Saturation 98% 10/02/2024 6:28 PM EST Inhaled Oxygen Concentration - - Weight - - Height - - Body Mass Index - - Plan of Treatment Health Maintenance Due Date Last Done Comments Hepatitis C Virus Screening 1972 HIV Screening 1985 DTaP/Tdap/Td Vaccines (1 - Tdap) 1991 Hepatitis B Vaccines (1 of 3 - 19+ 3-dose series) 1991 Pap Smear (Ages 21-65) 1993 Mammogram 2012 Colonoscopy 2017 Pneumococcal Vaccines 50+ (1 of 1 - PCV) 2022 Zoster (Shingles) Vaccine (1 of 2) 2022 Influenza Vaccine 06/19/2024 COVID-19 Vaccine ( - 2023-2 5 season) 2024 Pneumococcal Vaccine: [place]iat [place] (0-5 Years) and At-Risk Patients (6 to 49 Years) Aged Out No longer eligible b ased on patient's age to complete this topic Care Teams Financial Service Professional Relationship Specialty Start Date End Date Unknown Unknow Provider Address PCP - General 10/02/24
--- OUTSIDE RECORDS SUMMARY | 2025-02-10 14:09 | XMS_ITS | Clinical Summary ---
Author Organization [employer] Address [address] [place] [address] 7[address] [place] [address] Care Team Providers Care Kier Operator Name Role Phone Roro Stephens [facility] Primary Care Provider [phone] Allergies No known active allergies Medications sodium chloride ([place] Nasal [place]) 0.65 % nasal sprayIndication s:Acute mucoid otitis media of left ear 1-2 sprays on each nostril every 2-3 hours as needed for nasal congestion 30 mL 1 3 Active albuterol (Ventolin HFA) 108 (90 Base) MCG/ACT inhalerIndicati ons:COVID-19 virus infection Inhale 2 puffs every 4 (four) hours if needed for wheezing or shortness of breath. 18 g 2 3 Active evening primrose oil 500 MG Take 1 capsule by mouth in the morning. Active ibuprofen 600 MG tabletIndicatio ns:COVID-19 virus infection TAKE 1 TABLET BY MOUTH EVERY 6 HOURS NEEDED FOR PAIN OR FEVER OR HEADACHE 30 tablet 2 3 Active Active Problems Problem Noted Date Diagnosed Date Post-menopausal bleeding 06/15/2023 Overview (06/15/2023): 1. 05/02/2023 for episode of vaginal spotting at the beginning of April. Patient post menopausal x 3 years. Pap collected at time of visit NIL HPV +. Referred to [facility] Dr. Brown for PMB follow up and colpo for abnormal pap Assessment & Plan (06/26/2023 5:57 AM EDT): Reviewed indication for PMB with patient and typical steps of procedure Patient will follow up with [facility] as scheduled Mixed hyperlipidemia 05/18/2023 Overview (06/15/2023): ?? Managed with diet alone ?? ASCVD 1.7% 04/2023 Assessment & Plan (06/26/2023 5:58 AM EDT): ?? Well controlled with diet alone ?? Continue with current lifestyle recommendations Assessment & Plan (05/18/2023 12:02 PM EDT): ?? Repeat lipid panel today Healthcare maintenance 05/18/2023 Overview (05/18/2023): Mammo: 04/2023 Pap: 04/2023- NIL HPV+, referred to [facility] C-scope: Referred for screening 02/2022 BMD: Routine age 67 Asthma 03/08/2022 Overview (05/18/2023): ?? Albuterol ?? Singulair ?? Claritin ?? No hx of hospitalizations Assessment & Plan (05/18/2023 11:07 AM EDT): ?? Well controlled ?? Continue current regimen Family History Medical History Relation Name Comments Hypertension Mother Uterine cancer Mother Relation Name Status Comments Mother Social History Tobacco Use Types Packs/Day Years Used Date Smoking Tobacco: Never Passive Smoke Exposure: Never Smokeless Tobacco: Never Tobacco Cessation:Counseling Given: Not Answered Alcohol Use Standard Drinks/Week Comments Never 0 (1 standard drink = 0.6 oz pur e alcohol) Depression Answer Date Recorded Patient Health Questionnaire-9 Score 0 06/15/2023 Housing Stability Answer Date Recorded What is your housing situation today? I have carolina argueta 09/05/[address] you li ve. Do you have problems with any of the following? None of the above 09/05/2023 Food Insecurity Answer Date Recorded Within the past 12 months, y ou worried that your food would run out before you got money to buy more: Never True 09/05/2023 Within the past 12 months,th e food you bought just didn't last and you didn't have enough money to get more: Never True Transportation Answer Date Recorded In the past 12 months, has l ack of transportation kept you from medical appts, meetings, work or from getting things needed for daily living? No 09/05/2023 Utilities Answer Date Recorded In the past 12 months, has t he electric, gas, oil or water company threatened to shut off services in your home? No 09/05/2023 Depression Answer Date Recorded Patient Health Questionnaire-2 Score 0 06/15/2023 Comments No Sex and Gender Information Value Date Recorded Sex Assigned at Female 09/18/2022 10:40 AM EDT Legal Sex Female 10:40 AM EDT Gender Identity Female 09/18/2022 10:40 AM EDT Sexual Orientation Straight 09/18/2022 10 :40 AM EDT Last Filed Vital Signs Vital Sign Reading Time Taken Comments Blood Pressure 114/64 06/15/2023 3:28 PM EDT Pulse 60 06/15/2023 3:28 PM EDT Temperature 36.5 ??C (97.7 ??F) 06/15/2023 3:28 PM ED T Respiratory Rate 18 06/15/2023 3:28 PM EDT Oxygen Saturation 98% 06/15/2023 3:28 PM EDT Inhaled Oxygen Concentration - - Weight 77.7 kg (171 lb 6.4 oz) 06/15/2023 3:28 P M EDT Height 157.5 cm (5' 2 ) 06/15/2023 3:28 PM EDT Body Mass Index 31.35 06/15/2023 3:28 PM EDT Plan of Treatment Health Maintenance Due Date Last Done Comments CT Colonography 1972 FIT DNA/Cologuard 1972 FIT 1972 FOBT 1972 Sigmoidoscopy 1972 Pneumococcal Vaccine: Pediatrics (0 to 5 Years) and At-Risk Patients (6 to 49) Years) (1 of 2 - PCV) 1978 Alcohol/Substance Use Screening 1984 Family Planning (PISQ) 1987 DTaP/Tdap/Td Vaccines (1 - Tdap) 1991 Hepatitis B Vaccines (1 of 3 - 19+ 3-dose series) 1991 Pneumococcal Vaccine: 50+ Years (1 of 2 - PCV) 1991 Zoster Vaccines (1 of 2) 2022 Colonoscopy 05/03/2023 Colorectal Cancer Screening 05/03/2023 Depression Screening 06/15/2024 06/15/2023, 06/15/2023 SDOH Screening 06/15/2024 06/15/2023 Tobacco Screening 06/26/2024 06/26/2023 COVID-19 Vaccine (1 - 2023-2 5 season) 2024 Influenza Vaccine (#1) 2024 Cervical Cancer Screening 08/23/2024 HPV/Cotest 08/23/2024 05/02/2023, 05/02/2023 Pap Smear 08/23/2024 05/02/2023 Mammogram 05/08/2025 05/08/2023, 05/08/2023 RSV Patients and Patients Aged 60 years or older (1 - 1-dose 75+ series) 2047 HIV Screening Completed 03/08/2022 Hepatitis C Screening Completed 03/08/2022 HIB Vaccines Aged Out No longer eligi ble based on patient's age to complete this topic HPV Vaccines Aged Out No longer eligi ble based on patient's age to complete this topic Hepatitis A Vaccines Aged Out No long er eligible based on patient's age to complete this topic IPV Vaccines Aged Out No longer eligi ble based on patient's age to complete this topic Meningococcal Vaccine Aged Out No sujata augusta eligible based on patient's age to complete this topic RSV under 20 months Aged Out No longe r eligible based on patient's age to complete this topic Rotavirus Vaccines Aged Out No longer eligible based on patient's age to complete this topic Procedures Procedure Name Priority Date/Time Associated Diagnosis Comments BI MAMMOGRAM SCREENING BILATERAL Routine 05/08/2023 Breast cancer screening by mammogram HPV GENOTYPES 16,18/45 Routine 05/02/2023 9:52 AM EDT IMAGE-GUIDED PAP W/AGE BASED SCR,W/CT/NG/TRICH Routine 05/02/2023 9:52 AM EDT Postmenopausal bleeding Cervical cancer screening ZZZ HISTORICAL HEPATITIS C AB W/REFL TO HCV RNA, QN, PCR Routine 03/08/2022 10:41 AM EDT HIV 1/2 ANTIGEN/ANTIBODY, FOURTH GENERATION W/RFL Routine 03/08/2022 10:41 AM EDT from Last 3 Months or Most Recently Relevant to Health Maintenance Results * BI Mammogram Screening Bilateral (05/08/2023) Anatomical Region Laterality Modality Breast Bilateral Mammography 05/08/2023 Narrative 05/08/2023 2:55 PM EDT Birads 1 routine screening recommended, see scanned report us Amberly Huynh CNM IM BI PROCEDURES Final R esult * (ABNORMAL) Image-Guided Pap with Age-Based Screening??with CT/NG,??Trichomonas (05/02/2023 9:52 AM EDT) Comment [facility] Comment: This order for age-based cervical cancer and STI screening follows ACOG guidelines(PB 168, 140, QYV423). See individual assays for performing site location. Clinical Information: PM BLEEDING [employer] (powering [employer] [facility] LMP: NONE GIVEN [employer] (powering [employer] [facility] Prev. PAP: NONE GIVEN [facility] Prev. BX: NONE GIVEN [employer] (powering [employer] [facility] SOURCE: None given [employer]power[employer] [facility] Statement Of Adequacy: [employer] Comment: Satisfactory for evaluation. Endocervical/transformation zone component present. Interpretation/Re sult: Negative for intraepithelial lesion or malignancy. [facility] COMMENT: This Pap test has been evaluated with computer assisted technology. [facility] Cafe Cook: [facility]ella [facility] Comment: SL, CT(ASCP) CT screening location: [address] ??[address] Review Cafe Cook: [facility] Comment: JNA, CT(ASCP) CT screening location: [address] ??[address] (Always Message) Que [facility] Comment: EXPLANATORY NOTE: The Pap is a screening test for cervical cancer. It is not a diagnostic test and is subject to false negative and false positive results. It is most reliable when a satisfactory sample, regularly obtained, is submitted with relevant clinical findings and history, and when the Pap result is evaluated along with historic and current clinical information. HPV nRNA E6/E7 Detected(A) Not Detected [employer] Comment: Methodology: Rag Room Supervisor-Mediated Amplification This assay detects E6/E7 viral messenger RNA (mRNA) from 14 high-risk HPV types (16,18,31,33,35,39,45,51,52,56,58,59,66,68). Cervical sources are required for HPV testing. If a vaginal source from a patient who has had a total hysterectomy with removal of cervix was submitted, please contact the testing laboratory for alternative testing options. For additional information, please refer to http://Parkplatzking.Getui/faq/WRV921j4 (This link if provided for information/ educational purposes only.) Chlamydia trachomatis RNA, TMA, Urogenital NOT DETECTED NOT DETECTED [employer] Neisseria gonorrhoeae RNA, TMA, Urogenital NOT DETECTED NOT DETECTED [employer] (Always Message) Que [employer] Comment: The analytical performance characteristics of this assay, when used to test SurePath(TM) specimens have been determined by [facility]. The modifications have not been cleared or approved by the FDA. This assay has been validated pursuant to the CLIA regulations and is used for clinical purposes. For additional information, please refer to https://Parkplatzking.Getui/faq/YLJ339 (This link is being provided for information/ educational purposes only.) Trichomonas vaginalis, QL, TMA, PAP Vial NOT DETECTED NOT DETECTED [employer] Comment: The analytical performance characteristics of this assay have been determined by [facility]. The modifications have not been cleared or approved by the FDA. This assay has been validated pursuant to the CLIA regulations and is used for clinical purposes. For additional information, please refer to http://Parkplatzking.Getui/ faq/Trichomonastma (This link is being provided for information/ educational purposes only.) Pap Vial 05/02/2023 9:52 AM EDT 05/03/2023 4:20 AM EDT Amberly Huynh [facility] CYTOLOGY ORDERABLES F inal Result Performing Organization Address [facility] de Phone Number [facility] [address] [place] [address], [place] [address] [facility] [place] [employer] [address] [place] [address] * (ABNORMAL) HPV Genotypes 16,18/45 (05/02/2023 9:52 AM EDT) HPV 16 RNA DETECTED(A) NOT DETECTED [facility] [place] [employer] HPV 18/45 RNA NOT DETECTED NOT DETECTED [facility] [place] [employer] Comment: Methodology: Rag Room Supervisor Mediated Amplification Cervical sources are required for HPV testing. If a vaginal source from a patient who has had a total hysterectomy with removal of cervix was submitted, please contact the testing laboratory for alternative testing options. 05/02/2023 9:52 AM EDT 05/03/2023 4:20 AM EDT Amberly Huynh [facility] CYTOLOGY ORDERABLES F inal Result Performing Organization Address [facility] de Phone Number [facility] [address] [place] [address], [place] [place] [address] [facility] [place] [employer] [address] [place] [address] * HEPATITIS C AB W/REFL TO HCV RNA, QN, PCR (03/08/2022 10:41 AM EDT) HEPATITIS C ANTIBODY NON-REACT CARMINA NON-REACT [facility] INDEX 0.03 <1.00 [facility] Comment: ?? HCV antibody was non-reactive. There is no laboratory ?? evidence of HCV infection. ?? In most cases, no further action is required. However, if recent HCV exposure is suspected, a test for HCV RNA (test code 10510) is suggested. ?? For additional information please refer to http://education.Getui/faq/YJR69i9 (This link is being provided for informational/ educational purposes only.) ?? 03/08/2022 10:4 1 AM EDT [facility] GLOVE MACHINE OPERATOR HISTORICAL/NON ORDERABLE LABS Final Result Performing Organization Address [facility] de Phone Number [facility] [address] * HIV 1/2 ANTIGEN/ANTIBODY,FOURTH GENERATION W/RFL (03/08/2022 10:41 AM EDT) HIV-1/2 ANTIGEN AND ANTIBODIES, 4TH GENERATION W/ REFLEX NON-REACT CARMINA NON-REACT CARMINA [facility] Comment: HIV-1 antigen and HIV-1/HIV-2 antibodies were not detected. There is no laboratory evidence of HIV infection. ?? PLEASE NOTE: This information has been disclosed to you from records whose confidentiality may be protected by state law. ??If your state requires such protection, then the state law prohibits you from making any further disclosure of the information without the specific written consent of the person to whom it pertains, or as otherwise permitted by law. A general authorization for the release of medical or other information is NOT sufficient for this purpose. ? For additional information please refer to http://education.Getui/faq/EXG396 (This link is being provided for informational/ educational purposes only.) ? The performance of this assay has not been clinically validated in patients less than 2 years old. ?? 03/08/2022 10:4 1 AM EDT [facility] LAB BLOOD ORDERABLES Final Re sult Performing Organization Address [facility] de Phone Number [facility] [address] from Last 3 Months or Most Recently Relevant to Health Maintenance Insurance , [facility] [address] [place] [address] [facility] Care Teams Kier Operator Relationship Specialty Start Date End Date Roro Stephens FNP [address] [place] [address] PCP - General Family Medicine 02/09/22
--- OUTSIDE RECORDS SUMMARY | 2025-02-10 14:09 | XMS_ITS | Encounter Summary ---
Author Organization [employer] Address [address] [facility] 7t [place] [address] Care Team Providers Care Greens Planter Name Role Phone Roro Stephens VICE PRESIDENT PROCESS Primary Care Provider [phone] Encounter Details Date Type Department Care Team ([facility] st Contact Info) Description 08/28/2023 Orders Only [facility] [address] [place], [place] [phone] Mary Vuong RN [address] [place], [place] [phone] Social History Tobacco Use Types Packs/Day Years Used Date Smoking Tobacco: Never Passive Smoke Exposure: Never Smokeless Tobacco: Never Alcohol Use Standard Drinks/Week Comments Never 0 (1 standard drink = 0.6 oz pur e alcohol) Depression Answer Date Recorded Patient Health Questionnaire-9 Score 0 06/15/2023 Housing Stability Answer Date Recorded What is your housing situation today? I have carolinajanie argueta 08/25/[address] you li ve. Do you have problems with any of the following? None of the above 08/25/2023 Food Insecurity Answer Date Recorded Within the past 12 months, y ou worried that your food would run out before you got money to buy more: Never True 08/25/2023 Within the past 12 months,th e food you bought just didn't last and you didn't have enough money to get more: Never True 05/2023 Transportation Answer Date Recorded In the past 12 months, has l ack of transportation kept you from medical appts, meetings, work or from getting things needed for daily living? No 08/25/2023 Utilities Answer Date Recorded In the past 12 months, has t he electric, gas, oil or water company threatened to shut off services in your home? No 08/25/2023 Depression Answer Date Recorded Patient Health Questionnaire-2 Score 0 06/15/2023 Comments No Sex and Gender Information Value Date Recorded Sex Assigned at Female 09/18/2022 10:40 AM EDT Legal Sex Female 10:40 AM EDT Gender Identity Female 09/18/2022 10:40 AM EDT Sexual Orientation Straight 09/18/2022 10 :40 AM EDT documented as of this encounter Plan of Treatment Not on file documented as of this encounter Procedures Procedure Name Priority Date/Time Associated Diagnosis Comments US PELVIS TRANSVAGINAL Routine 09/24/2023 12:04 PM EST BIOPSY CERVIX Routine 08/23/2023 12:00 AM EDT documented in this encounter Results * US Pelvis Transvaginal (09/24/2023 12:04 PM EST) Anatomical Region Laterality Modality Pelvis Ultrasound 09/24/2023 12:0 4 PM EST Narrative 09/26/2023 7:43 AM EST ? [facility] ?[address] ?[place] [address] ? Ultrasound Report ? Signed ? Patient: Livan Snell ?MR ?? #: [id number] ? : 1970 ?Acct:[id number] ? Age/Sex: 52 / F ?ADM Date: 09/24/23 ? Loc: HO.US ? Attending Dr: Minor Brown MD ? Ordering Physician: Minor Brown MD ?? Date of Service: 09/24/23 ?? Procedure(s): US pelvic and transvaginal ?? Accession Number(s): [id number] ? cc: Roro Stephens VICE PRESIDENT PROCESS; Minor Brown MD ? EXAMINATION: ? US PELVIS ? CLINICAL INFORMATION: ? Postmenopausal bleeding. ? COMPARISON: ?? 05/02/2023 ? TECHNIQUE: ?? Ultrasound of the pelvis is performed using both transabdominal and ?? transvaginal transducers along with Doppler. Transvaginal imaging is ?? performed due to inadequate visualization transabdominally. ? FINDINGS: ?? The uterus is anteverted, heterogeneous and measures 6.8 x 3.8 x 4.7 ?? cm, volume 63.59 mL. ? The endometrium appears heterogeneous with approximate double wall ?? thickness of 0.2 cm, although evaluation limited due to uterine ?? heterogeneity. ? Small amount of free fluid in the pelvis. ? Echogenic foci scattered throughout the uterus characteristic of ?? calcifications, possibly related to fibroid change. ? A 1.1 x 0.9 x 0.8 cm fundal fibroid previously measured 2.7 x 2.5 x 3.1 ?? cm. Small 4 mm cystic area at the uterine fundus. ? Right ovary measures 1.6 x 1.1 x 1.4 cm, volume 1.3 mL, and is ?? unremarkable. ? Left ovary measures 2.5 x 1.3 x 1.5 cm, volume 2.6 mL, and is ?? unremarkable. ? US/US pelvic and transvaginal ?? IMPRESSION: ?? 1. Fibroid uterus. ? 2. Endometrium appears heterogeneous with approximate double wall ?? thickness of 0.2 cm, although evaluation limited due to uterine ?? heterogeneity. Gynecologic consultation recommended to determine ?? further management for this patient with postmenopausal bleeding. ? 3. Unremarkable bilateral ovaries. ? 4. Small amount of free fluid in the pelvis. ? Dictated By: ?Sherri Sandy MD ? Signed By: ?<Electronically signed by Sherri Sandy MD in OV> ? 09/26/23 0739 ? DD/ 1204 ? TD/TT: ? Tracer Powder Blender: ? Procedure Note Adeola Feliciano - 09/26/[address] [address] Ultrasound Report Signed Patient: Livan SnellMR #: [id number] : 1970Acct:[id number] Age/Sex: 52 / FADM Date: 09/24/23 Loc: HO.US Attending Dr: Minor Brown MD Ordering Physician: Minor Brown MD Date of Service: 09/24/23 Procedure(s): US pelvic and transvaginal Accession Number(s): [id number] cc: Roro Stephens VICE PRESIDENT PROCESS; Minor Brown MD EXAMINATION: US PELVIS CLINICAL INFORMATION: Postmenopausal bleeding. COMPARISON: 05/02/2023 TECHNIQUE: Ultrasound of the pelvis is performed using both transabdominal and transvaginal transducers along with Doppler. Transvaginal imaging is performed due to inadequate visualization transabdominally. FINDINGS: The uterus is anteverted, heterogeneous and measures 6.8 x 3.8 x 4.7 cm, volume 63.59 mL. The endometrium appears heterogeneous with approximate double wall thickness of 0.2 cm, although evaluation limited due to uterine heterogeneity. Small amount of free fluid in the pelvis. Echogenic foci scattered throughout the uterus characteristic of calcifications, possibly related to fibroid change. A 1.1 x 0.9 x 0.8 cm fundal fibroid previously measured 2.7 x 2.5 x 3.1 cm. Small 4 mm cystic area at the uterine fundus. Right ovary measures 1.6 x 1.1 x 1.4 cm, volume 1.3 mL, and is unremarkable. Left ovary measures 2.5 x 1.3 x 1.5 cm, volume 2.6 mL, and is unremarkable. US/US pelvic and transvaginal IMPRESSION: 1. Fibroid uterus. 2. Endometrium appears heterogeneous with approximate double wall thickness of 0.2 cm, although evaluation limited due to uterine heterogeneity. Gynecologic consultation recommended to determine further management for this patient with postmenopausal bleeding. 3. Unremarkable bilateral ovaries. 4. Small amount of free fluid in the pelvis. Dictated By: Sherri Sandy MD Signed By: <Electronically signed by Sherri Sandy MD in OV> 09/26/23 0739 DD/ 1204 TD/TT: Tracer Powder Blender: us [facility] External Provider IMG US PROCEDURES Final Result * Biopsy cervix (08/23/2023 12:00 AM EDT) Minor Brown MD IN CLINIC/BEDSIDE ORDERABLES Fin al Result [facility] [address] [place] [phone] documented in this encounter Visit Diagnoses Not on filedocumented in this encounter Additional Health Concerns Assessment Noted Time PHQ-9 Depression Total Score: 0 07/28/20 23 3:29 PM EDT documented as of this encounter Care Teams Greens Planter Relationship Specialty Start Date End Date Roro Stephens FNP [address] [place] [address] PCP - General Family Medicine 02/09/22 documented as of this encounter
--- OUTSIDE RECORDS SUMMARY | 2025-02-10 14:09 | XMS_ITS ---
Author Name [facility] Organization Unknown Results Test Name/Text Value Interpretation Date Range Source Hemoglobin A1C 5.7% Normal [id number] 4.2 - 5.8 [facility] Free T4 Free Thyroxine 0.89ng/dL Normal [id number] 0.89 - 1.76 [facility] Vitd 25 Hydroxy 32.8ng/mL Normal [id number] 30 - 100 [facility] Anion Gap 7.8mmol/L Normal [id number] 5 - 16 [facility] Albumin Level 4.5g/dL Normal [id number] 3.2 - 4.8 [facility] Chloride 109mmol/L Above high normal [id number] 98 - 107 [facility] Carbon Dioxide 28mmol/L Normal [id number] 20 - 31 [facility] Bilirubin,Total 0.3mg/dL Normal [id number] 0.3 - 1.2 [facility] Alanine Aminotransferase 27U/L Normal [id number] 10 - 49 [facility] Creatinine 0.66mg/dL Normal [id number] 0.55 - 1.02 [facility] Alkaline Phosphatase 90U/L Normal [id number] 46 - 1 10 [facility] Glucose 96mg/dL Normal [id number] 74 - 106 [facility] Albumin Globulin Ratio 1.9% Normal [id number] 1.1 - 2.2 [facility] Aspartate Amino Transferase 21U/L Normal [id number] 0 - 33.9 [facility] Sodium 145mmol/L Normal [id number] 136 - 145 [facility] Potassium 4.4mmol/L Normal [id number] 3.5 - 5.1 [facility] BUN Creatinine Ratio 22% Normal [id number] 7 - 25 [facility] Globulin 2.4g/dL Normal [id number] 1.9 - 4.1 [facility] Calcium 9.8mg/dL Normal [id number] 8.7 - 10.4 [facility] BUN 14.6mg/dL Normal [id number] 9 - 23 [facility] Total Protein 6.9g/dL Normal [id number] 5.7 - 8.2 [facility] Triglycerides 98mg/dL Normal [id number] - 150 [facility] Chol HDL Ratio 4.8% Above high normal [id number] 0 - 4.23 [facility] Cholesterol 205mg/dL Above high normal [id number] - 200 [facility] HDL Cholesterol 42.4mg/dL Normal [id number] 40 - 60 [facility] LDL Cholesterol Calculated 142.6mg/dL Above high normal [id number] 65 - 129 [facility] Vitamin B12 703pg/mL Normal [id number] 211 - 911 [facility] TSH with Reflex FT4/TT3 4.669uIU/mL Above high normal [id number] 0.48 - 4.17 [facility] Basophils Absolute Auto 0.1/CUMM Normal [id number] 0 - 0.2 [facility] Hematocrit 43.3% Normal [id number] 37 - 47 [facility] Basophils Percent Auto 1.3% Normal [id number] 0 - 2 [facility] Eosinophils Absolute Auto 0.5/CUMM Normal [id number] 0 - 1 [facility] Lymphocytes Absolute Auto 1.5/CUMM Normal [id number] 1 - 4 [facility] Platelet Count 272/CUMM Normal [id number] 140 - 440 [facility] Monocytes Absolute Auto 0.6/CUMM Normal [id number] 0 - 1 [facility] Monocytes Percent Auto 13.1% Above high normal [id number] 1 - 13 [facility] Immature Granulocyte Percent 0.4% Normal [id number] 0 - 1 [facility] Granulocytes Percent Auto 40.3% Normal [id number] 40 - 72 [facility] White Blood Count 4.5/CUMM Below low normal [id number] 4. 8 - 10.8 [facility] Lymphocytes Percent Auto 33.6% Normal [id number] 20 - 51 [facility] Eosinophils Percent Auto 11.3% Above high normal [id number] 0 - 7 [facility] Mean Corpuscular Hemoglobin 30.3PG Normal [id number] 27 - 31 [facility] Red Cell Distribution Width 12% Normal [id number] 11.5 - 14.5 [facility] Red Blood Count 4.69/CUMM Normal [id number] 4.2 - 5.4 [facility] Mean Corpuscular Volume 92.3FL Normal [id number] 80 - 96 [facility] Hemoglobin 14.2G/DL Normal [id number] 12 - 16 [facility] Mean Platelet Volume 10.4FL Normal [id number] 7.4 - 12 [facility] Immature Gran Absolute Auto 0/CUMM Normal [id number] 0 - 0.3 [facility] Mean Corpuscular HGB Conc 32.8G/DL Normal [id number] 32 - 37 [facility] Granulocytes Absolute Auto 1.8/CUMM Normal [id number] 1 - 7 [facility] History of Medication Use Medication Directions Dispensed Refills Start Date End Date [facility] Vitamin C 1 po qd active Vitamin C 1 po qd active Vitamin C 1 po qd active Vitamin C 1 po qd active Vitamin C 1 po qd active Vitamin C 1 po qd active Vitamin C 1 po qd active Vitamin C 1 po qd active Vitamin C 1 po qd active Vitamin C 1 po qd active Vitamin C 1 po qd active Vitamin C 1 po qd active montelukast 1 po qd am active montelukast 1 po qd am active montelukast 1 po qd am active montelukast 1 po qd am active montelukast 1 po qd am active montelukast 1 po qd am active montelukast 1 po qd am active montelukast 1 po qd am active montelukast 1 po qd am active montelukast 1 po qd am active montelukast 1 po qd am active montelukast 1 po qd am active Problems Problem Status Onset Date Problem Type Date of Resolution Source Mild intermittent asthma active 2025-01-[address] Disorder of knee (disorder) active 2024-08-13 ProblemAct [facility] Asthma (disorder) active 2024-08-13 ProblemAct [facility] Vitamin D deficiency active 2025-01-[address] [facility] [address] Gastroesophageal reflux disease, unspecified whether esophagitis present active EncounterDiagnosisAct [facility] Chest pain, unspecified type active EncounterDiagnosisAct [facility] Encounters Encounter Type Encounter Reason Primary Diagnosis Location Date Ambulatory [facility], 01/08/2025 Ambulatory [facility], 01/06/2025 Ambulatory [facility] 01/06/2025 Ambulatory [facility] 01/06/2025 Ambulatory [facility] 11/27/2024 Ambulatory [facility] 11/27/2024 Ambulatory [facility] 11/27/2024 Ambulatory [facility] 11/27/2024 Ambulatory [facility] 11/27/2024 Ambulatory Other Other [facility] 10/02/2024 Ambulatory [facility] 08/13/2024 Ambulatory [facility] 08/05/2024 Care Team Organization Name Specialty Phone Email Start Date End Da te [facility] 10/04/2024 02/04/2025 [facility] 10/03/2024 [facility]
--- OUTSIDE RECORDS SUMMARY | 2025-02-10 14:09 | XMS_ITS | Encounter Summary ---
Author Organization [employer] Address [address] [place] [address] [address] [place] [address] Care Team Providers Care Wad Lubricator Name Role Phone [facility] Primary Care Provider [phone] Encounter Details Date Type Department Care Team ([facility] st Contact Info) Description 05/29/2023 Abstract [facility] [address] [place] [address] [facility] [address] [place] [address] Social History Tobacco Use Types Packs/Day Years Used Date Smoking Tobacco: Never Passive Smoke Exposure: Never Smokeless Tobacco: Never Alcohol Use Standard Drinks/Week Comments Never 0 (1 standard drink = 0.6 oz pur e alcohol) Comments No Sex and Gender Information Value Date Recorded Sex Assigned at Female 09/18/2022 10:40 AM EDT Legal Sex Female 10:40 AM EDT Gender Identity Female 09/18/2022 10:40 AM EDT Sexual Orientation Straight 09/18/2022 10 :40 AM EDT COVID-19 Exposure Response Date Recorded In the last 10 days, have yo u been in contact with someone who was confirmed or suspected to have Coronavirus/COVID-19? No / Unsure 05/16/2023 9:38 AM EDT documented as of this encounter Plan of Treatment Not on file documented as of this encounter Visit Diagnoses Not on filedocumented in this encounter Additional Health Concerns Assessment Noted Time PHQ-9 Depression Total Score: 0 05/16/20 9:47 AM EDT documented as of this encounter Care Teams Wad Lub[employer]ator Relationship Specialty Start Date End Date Roro Stephens FNP [address] [place] [address] PCP - General Family Medicine 02/09/22 documented as of this encounter
--- OUTSIDE RECORDS SUMMARY | 2025-02-10 14:09 | XMS_ITS | Data Portability ---
Author Organization [facility], Primary Care [facility] Address [address] [address] Assessment No assessment recorded. Plan of Treatment Reminders Order Date Submit Date Provider Last Modified By Organization Details Last Modified Time Details Appointments Gastro [facility] Colon 30 2024 08:30A M Sushma Escobar MD Not available Not available Not available Lab 2025 08:30A M Lab Not available Not available Not available CPE 2025 10:00A M Amanda King APRN Not available Not available Not available Lab vitamin D, 25-hydrox y, total, serum 2024 026 [facility], [address] [place] [address], [id number], 01/03/2025 10:33:21 HbA1c (hemoglob in A1c), blood 2024 026 [facility], [address] [place] [address], [id number], 01/03/2025 10:33:21 TSH, serum, reflex free T4 2024 026 [facility], [address] [place], [address], 01/03/2025 10:33:21 CMP, serum or plasma 2024 026 [facility], [address] [place] [address], [id number], 01/03/2025 10:33:21 CBC w/ auto diff 2024 026 [facility], [address] [place], [address], 01/03/2025 10:33:21 lipid panel, serum 2024 026 [facility], [address] [place] [address], [id number], 01/03/2025 10:33:21 vitamin B12, serum 2024 026 [facility], [address] [place] [address], [id number], 01/03/2025 10:33:21 magnesium , serum or plasma 2024 026 [facility], [address] [place] [address], [id number], 01/03/2025 10:33:21 Referral gastroent erologist referral 2024 025 [email or web address] [facility] ([facility]), [address] [place] [address], [id number], 01/12/2025 13:05:34 Procedures None recorded. Surgeries None recorded. Imaging None recorded. Medication Orders None recorded. Patient TargetsNo targets recorded. Patient InstructionsNo instructions recorded. Reason for Referral Service Cleaner Referral for Screening for malignant neoplasm of colon Referring Physician: Amanda King, Internal Medicine, Encounter Date: 01/03/2025 Results Created Date Observation Date Name Description Value Unit Range Abnormal Flag Note LastModifiedBy Organization Detail LastModifiedTime 01/06/2001/06/2025 COMPL ETE BLOOD COUNT AUTO DIFF white blood count 4.5 /cumm 4.8-10 .8 low Not Available [address], [address], 01/06/2025 14:44:37 01/06/20 25 01/06/2025 COMPL ETE BLOOD COUNT AUTO DIFF red blood count 4.69 /cumm 4.20-5 .40 normal Not Available [address], [address], 01/06/2025 14:44:37 01/06/20 25 01/06/2025 COMPL ETE BLOOD COUNT AUTO DIFF hemoglobin 14.2 g/dL 12.0-1 6.0 normal Not Available [facility] [address] [place], [address], 01/06/2025 14:44:37 01/06/20 25 01/06/2025 COMPL ETE BLOOD COUNT AUTO DIFF hematocrit 43.3 % 37-47 normal Not Available [facility] [address] [place], [address], 01/06/2025 14:44:37 01/06/20 25 01/06/2025 COMPL ETE BLOOD COUNT AUTO DIFF mean corpuscular volume 92.3 fL 80.0-9 6.0 normal Not Available [facility] [address] [place] [address], [address], 01/06/2025 14:44:37 01/06/20 25 01/06/2025 COMPL ETE BLOOD COUNT AUTO DIFF mean corpuscular hemoglobin 30.3 pg 27.0-3 1.0 normal Not Available [facility] [address] [place], [address], 01/06/2025 14:44:37 01/06/20 25 01/06/2025 COMPL ETE BLOOD COUNT AUTO DIFF mean corpuscular HGB conc 32.8 g/dL 32.0-3 7.0 normal Not Available [facility] [address] [place], [address], 01/06/2025 14:44:37 01/06/20 25 01/06/2025 COMPL ETE BLOOD COUNT AUTO DIFF red cell distribution width 12.0 % 11.5-1 4.5 normal Not Available [facility] [address] [place] [address], [address], 01/06/2025 14:44:37 01/06/20 25 01/06/2025 COMPL ETE BLOOD COUNT AUTO DIFF platelet count 272 /cumm 140-44 0 normal Not Available [facility] [address] [place], [address], 01/06/2025 14:44:37 01/06/20 25 01/06/2025 COMPL ETE BLOOD COUNT AUTO DIFF mean platelet volume 10.4 fL 7.4-12 .0 normal Not Available [facility] [address] [place], [address], 01/06/2025 14:44:37 01/06/20 25 01/06/2025 COMPL ETE BLOOD COUNT AUTO DIFF granulocytes percent auto 40.3 % 40.0-7 2.0 normal Not Available [facility] [address] [place] [address], [address], 01/06/2025 14:44:37 01/06/20 25 01/06/2025 COMPL ETE BLOOD COUNT AUTO DIFF lymphocytes percent auto 33.6 % 20.0-5 1.0 normal Not Available [facility] [address] [place], [address], 01/06/2025 14:44:37 01/06/20 25 01/06/2025 COMPL ETE BLOOD COUNT AUTO DIFF monocytes percent auto 13.1 % 1.0-13 .0 high Not Available [facility] [address] [place], [address], 01/06/2025 14:44:37 01/06/20 25 01/06/2025 COMPL ETE BLOOD COUNT AUTO DIFF eosinophils percent auto 11.3 % 0-7.0 high Not Available [facility] [address] [place], [address], 01/06/2025 14:44:37 01/06/20 25 01/06/2025 COMPL ETE BLOOD COUNT AUTO DIFF basophils percent auto 1.3 % 0-2.0 normal Not Available [facility] [address] [place], [address], 01/06/2025 14:44:37 01/06/20 25 01/06/2025 COMPL ETE BLOOD COUNT AUTO DIFF immature granulocyte percent 0.4 % 0-1.0 normal Not Available [facility] [address] [place], [address], 01/06/2025 14:44:37 01/06/20 25 01/06/2025 COMPL ETE BLOOD COUNT AUTO DIFF granulocytes absolute auto 1.8 /cumm 1.0-7. 0 normal Not Available [facility] [address] [place], [address], 01/06/2025 14:44:37 01/06/20 25 01/06/2025 COMPL ETE BLOOD COUNT AUTO DIFF lymphocytes absolute auto 1.5 /cumm 1.0-4. 0 normal Not Available [facility] [address] [place], [address], 01/06/2025 14:44:37 01/06/20 25 01/06/2025 COMPL ETE BLOOD COUNT AUTO DIFF monocytes absolute auto 0.6 /cumm 0-1.0 normal Not Available [facility] [address] [place], [address], 01/06/2025 14:44:37 01/06/20 25 01/06/2025 COMPL ETE BLOOD COUNT AUTO DIFF eosinophils absolute auto 0.5 /cumm 0-1.0 normal Not Available [facility] [address] [place], [address], 01/06/2025 14:44:37 01/06/20 25 01/06/2025 COMPL ETE BLOOD COUNT AUTO DIFF basophils absolute auto 0.1 /cumm 0-0.2 normal Not Available [facility] [address] [place], [address], 01/06/2025 14:44:37 01/06/20 25 01/06/2025 COMPL ETE BLOOD COUNT AUTO DIFF immature gran absolute auto 0.0 /cumm 0-0.3 normal Not Available [facility] [address] [place], [address], 01/06/2025 14:44:37 01/06/20 25 01/06/2025 COMPR EHENS CARMINA METAB OLIC PANEL glucose 96 mg/dL 74-106 normal Not Available [facility] [address] [place] [address], [address], 01/06/2025 15:22:32 01/06/20 25 01/06/2025 COMPR EHENS CARMINA METAB OLIC PANEL BUN 14.6 mg/dL 9-23 normal Not Available [facility] [address] [place], [address], 01/06/2025 15:22:32 01/06/20 25 01/06/2025 COMPR EHENS CARMINA METAB OLIC PANEL creatinine 0.66 mg/dL 0.55-1 .02 normal Not Available [facility] [address] [place], [address], 01/06/2025 15:22:32 01/06/20 25 01/06/2025 COMPR EHENS CARMINA METAB OLIC PANEL BUN creatinine ratio 22 % 7-25 normal Not Available [facility] [address] [place], [address], 01/06/2025 15:22:32 01/06/20 25 01/06/2025 COMPR EHENS CARMINA METAB OLIC PANEL estimated glomerular filt rate > 60.0 mL/mi n >60 normal Not Available [facility] [address] [place], [address], 01/06/2025 15:22:32 01/06/20 25 01/06/2025 COMPR EHENS CARMINA METAB OLIC PANEL estimated GFR ( reji > 60 mL/mi n >60 normal Not Available [facility] [address] [place], [address], 01/06/2025 15:22:32 01/06/20 25 01/06/2025 COMPR EHENS CARMINA METAB OLIC PANEL sodium 145 mmol/ L 136-14 5 normal Not Available [facility] [address] [place], [address], 01/06/2025 15:22:32 01/06/20 25 01/06/2025 COMPR EHENS CARMINA METAB OLIC PANEL potassium 4.4 mmol/ L 3.5-5. 1 normal Not Available [facility] [address] [place] [address], [address], 01/06/2025 15:22:32 01/06/20 25 01/06/2025 COMPR EHENS CARMINA METAB OLIC PANEL chloride 109 mmol/ L 98-107 high Not Available [facility] [address] [place], [address], 01/06/2025 15:22:32 01/06/20 25 01/06/2025 COMPR EHENS CARMINA METAB OLIC PANEL carbon dioxide 28 mmol/ L 20-31 normal Not Available [facility] [address] [place] [address], [address], 01/06/2025 15:22:32 01/06/20 25 01/06/2025 COMPR EHENS CARMINA METAB OLIC PANEL anion gap 7.8 mmol/ L 5-16 normal Not Available [facility] [address] [place], [address], 01/06/2025 15:22:32 01/06/20 25 01/06/2025 COMPR EHENS CARMINA METAB OLIC PANEL calcium 9.8 mg/dL 8.7-10 .4 normal Not Available [facility] [address] [place] [address], [address], 01/06/2025 15:22:32 01/06/20 25 01/06/2025 COMPR EHENS CARMINA METAB OLIC PANEL total protein 6.9 g/dL 5.7-8. 2 normal Not Available [facility] [address] [place] [address], [address], 01/06/2025 15:22:32 01/06/20 25 01/06/2025 COMPR EHENS CARMINA METAB OLIC PANEL albumin level 4.5 g/dL 3.2-4. 8 normal Not Available [facility] [address] [place], [address], 01/06/2025 15:22:32 01/06/20 25 01/06/2025 COMPR EHENS CARMINA METAB OLIC PANEL globulin 2.4 g/dL 1.9-4. 1 normal Not Available [facility] [address] [place], [address], 01/06/2025 15:22:32 01/06/20 25 01/06/2025 COMPR EHENS CARMINA METAB OLIC PANEL albumin globulin ratio 1.9 % 1.1-2. 2 normal Not Available [facility] [address] [place], [address], 01/06/2025 15:22:32 01/06/20 25 01/06/2025 COMPR EHENS CARMINA METAB OLIC PANEL bilirubin,to jah 0.3 mg/dL 0.3-1. 2 normal Not Available [facility] [address] [place], [address], 01/06/2025 15:22:32 01/06/20 25 01/06/2025 COMPR EHENS CARMINA METAB OLIC PANEL alkaline phosphatase 90 U/L 46-110 normal Not Available [facility] [address] [place], [address], 01/06/2025 15:22:32 01/06/20 25 01/06/2025 COMPR EHENS CARMINA METAB OLIC PANEL aspartate amino transferase 21 U/L 0.0-33 .9 normal Not Available [facility] [address] [place], [address], 01/06/2025 15:22:32 01/06/20 25 01/06/2025 COMPR EHENS CARMINA METAB OLIC PANEL alanine aminotransfe rase 27 U/L 10-49 normal Not Available [facility] [address] [place], [address], 01/06/2025 15:22:32 01/06/20 25 01/06/2025 LIPID PANEL cholesterol 205 mg/dL <200 high Not Available [facility] [address] [place], [address], 01/06/2025 15:22:34 01/06/20 25 01/06/2025 LIPID PANEL triglyceride s 98 mg/dL <150 normal Not Available [facility] [address] [place], [address], 01/06/2025 15:22:34 01/06/20 25 01/06/2025 LIPID PANEL HDL cholesterol 42.4 mg/dL 40-60 normal Not Available [facility] [address] [place], [address], 01/06/2025 15:22:34 01/06/20 25 01/06/2025 LIPID PANEL LDL cholesterol calculated 142.6 mg/dL 65-129 high Not Available [facility] [address] [place], [address], 01/06/2025 15:22:34 01/06/20 25 01/06/2025 LIPID PANEL chol HDL ratio 4.80 % 0.00-4 .23 high Not Available [facility] [address] [place], [address], 01/06/2025 15:22:34 01/06/20 25 01/06/2025 VITAM IN B12 vitamin B12 703 pg/mL 211-91 1 normal Not Available [facility] [address] [place], [address], 01/06/2025 15:22:35 01/06/20 25 01/06/2025 FREE T4 FREE THYRO XINE free T4 free thyroxine 0.89 NG/dL 0.89-1 .76 normal Not Available [facility] [address] [place], [address], 01/06/2025 15:22:37 01/06/20 25 01/06/2025 TSH WITH REFLE X FT4/T T3 TSH with reflex FT4/TT3 4.669 uIU/m L 0.48-4 .17 high Not Available [facility] [address] [place], [address], 01/06/2025 15:22:38 01/06/20 25 01/06/2025 VITD 25 HYDRO XY vitd 25 hydroxy 32.8 NG/mL 30-100 normal Not Available [facility] [address] [place], [address], 01/06/2025 15:22:40 01/06/20 25 01/07/2025 HEMOG LOBIN A1C hemoglobin A1C 5.7 % 4.2-5. 8 normal Not Available [facility] [address] [place], [address], 01/07/2025 10:25:27 Result Notes None recorded. Problems Name Problem SNOMED Code Status Onset Date Resolution Date Notes Provider Name and Address Organization Details Recorded Time Vitamin D deficiency 80311289 Active 2024 Amanda King APRN [address], [place], [address], [facility] 09:32:18 Mild intermittent asthma 742737605 Active 2024 Amanda King APRN [address], [place], [address], [facility] 5 10:21:03 Problem Notes None recorded. Procedures Surgical History Date Name Laterality Status Provider Name and Address Organization Details Recorded Time 11/19/1983 Other completed Martha Chadwick [facility] 01/03/2025 10:14:49 Imaging Results None recorded. Procedure Notes None recorded. Medical Equipment None Reported. Allergies No known drug allergies Medications Name Sig Start Date Stop Date Status Note LastModified by Organization Details LastModified Time ondansetron HCl 4 mg tablet Take 1 tab 30 mins prior to prep 2024 active Not Available Not Available Not Avai lable Vitamin C 1 po qd active Not Available Not Av ailable Not Available montelukast 1 po qd am active Not Available N ot Available Not Available Vitamin D3 1 po qd active Not Available Not A vailable Not Available cetirizine 1 po q hs active Not Available Not Available Not Available Crowley Oil 1,000 mg capsule Take 1 capsule every day by oral route. active Not Available Not Available No t Available Suprep Bowel Prep Kit 17.5 gram-3.13 gram-1.6 gram oral solution Take as directed for bowel prep 2024 active Not Available Not Available Not Avai lable Vitals Date Recorded Body temperature Heart rate Oxygen saturation Oxygen saturation in Arterial blood by Pulse oximetry Respiratory rate Body weight Body mass index (BMI) Body height Systolic blood pressure Diastolic blood pressure Provider Name and Address Organization Details Last Updated DateTime 97.4 [degF] 80 /min 98 % 98 % 16 /min 77862.0 8 g 31.9 kg/m2 154.31 cm 110 mm[Hg] 70 mm[Hg] Martha SOTELO [facility], [facility] 10:09:48 Social History Question Answer Notes LastModified by Usermindizat ion Details LastModified Time Tobacco Smoking Status Never Smoker ASHLEIGH Perez [facility] 01/03/2025 10:14:00 Do You Have An Advance Directive? No Information not available 01/03/2025 Are You Blind Or Do You Have Difficulty Seeing? No Information not available 01/03/2025 Are You Deaf Or Do You Have Serious Difficulty Hearing? No Information not available 01/03/2025 Do You Feel Safe At Home? Yes Information not available 01/03/2025 Do You Have A Medical Power Of Mid Level Practitioner? No Information not available 01/03/2025 What Was The Date Of Your Most Recent Tobacco Screening? 01/03/2025 Information not available 01/03/2025 Do You Use Any Illicit Or Recreational Drugs? No Information not available 01/03/2025 Has Tobacco Cessation Counseling Been Provided? No Information not available 01/03/2025 Do You Or Have You Ever Used Any Other Forms Of Tobacco Or Nicotine? No Information not available 01/03/2025 Sex: Unknown Functional Status Question Answer Note LastModified by Organization D etails LastModified Time Do you have difficulty walking or climbing stairs? No Information not available 01/03/2025 Do you have difficulty doing errands alone? No Information not available 01/03/2025 Are you able to care for yourself? Yes Information n ot available 01/03/2025 Do you have difficulty dressing or bathing? No Information not available 01/03/2025 Mental Status Question Answer Note LastModified by Organization D etails LastModified Time Do you have difficulty concentrating, remembering or making decisions? No Information no t available 01/03/2025 Family History Relationship Description Onset Age of this Age Resolved Age Notes LastModified by Organization Details LastModified Time Mother Asthma pt. added direct ly (11/28) [email or web address] Not available 11/28/2024 08:00:10 Mother Hypertensive disorder pt. added direct ly (11/28) [email or web address] Not available 11/28/2024 08:00:44 Father Hypertensive disorder pt. added direct ly (11/28) [email or web address] Not available 11/28/2024 08:01:28 Notes:01/03/2025 MH, Medical History Condition Response High cholesterol Y Vitamin deficiency Y Gynecological HistoryNo gynecological history recorded. Obstetrics History GPAL:G 0 P 0 0 0 0 Past Encounters Encounter ID Performer Location Encounter Start Date Encounter Closed Date Diagnosis/Indication Diagnosis SNOMED-CT Code Diagnosis ICD10 Code Diagnosis Note [id number] Amanda King APRN [facility] [address] [address] 01/03/2025 10:00:17 01/03/2025 10:35:05 Adult health examination 826421098 Z00.00 flu declinestd ap duemammogr am has upcoming appt 01/2025Gyn has upcoming appt 01/20253629TJL3 0colonosco py referral entered Vitamin D deficiency 347 77625 E55.9 Screening for malignant neoplasm of colon 462072613 Z12.11 Depression screening 171 239641 Z13.31 Screening for depression - completed PHQ9. 5 to 15 minutes time spent to: Administer a screening tool Interpret the results Use the results as appropriat e Screening for malignant neoplasm of breast 927758110 Z12.January Screening for malignant neoplasm of cervix 480357194 Z12.4 2024 Mild inter mittent asthma 379509136 J45.20 montelukas t and cetirizine Health Concerns Section Related Observation LastModified by Organization Detai ls LastModified Time None Recorded Concern Status LastModified by Organization Details LastModified Time None Recorded Advance Directives Directive N: Payers Encounter Date Sequence Insurance Name Policy Number Policy Monsalve Covered Member ID Monsalve Member ID Guarantor Name 01/03/2025 1 [place] [employer] (PPO) [id number] Livan Sutton [id number] Livan Sutton Notes Date Note Type Note Provider Name and Address Organization Details Recorded Time 01/03/2025 text/html Patient is 54-year-old female who presents today to establish care with this provider and have CPE. Labs previously ordered and scheduled to be drawn early next week. Subjective:- Annual wellness visit- Reports flu-like illness in November: severe symptoms due to asthma- Hot flashes daily: less intense with evening primrose oil- Occasional knee pain with prolonged standing (10-hour shifts)- Occasional back pain- Reports constipation: manages with natural remedies (tea)Past Medical History:- Asthma- Allergies- Menopause- Works at [employer], standing 10 hours/dayMedicatio ns:- Montelukast (prescribed for 3 months)- Cetirizine- Vitamin C- Vitamin D- Evening primrose oilObjective:- Alert and oriented- Speaking in mix of Italian and [place]se, good comprehensionAsses sment:- Routine wellness exam- Menopausal symptoms- Constipation, well-managed with natural remediesPlan:- Labs ordered for next week (01/08/2025):- CBC- CMP- Lipid panel- TSH- HbA1C- B12- Vitamin D- Magnesium- GI referral for colonoscopy- Gynecology follow-up next month- Return in 1 year for annual wellness visit- Will contact if any abnormal results- Portal messaging available for questions/concerns Amanda King, JENNIFER [address], [place], [address], [place] [facility] 01/03/2025 12:09:49 OBGyn Episode No OBEpisode recorded.
--- OUTSIDE RECORDS SUMMARY | 2025-02-10 14:09 | XMS_ITS | Encounter Summary ---
Author Organization [employer] Address [address] [place] [address] [address] [place] [address] Care Team Providers Care Storage Management Architect Name Role Phone [facility] Primary Care Provider [phone] Encounter Details Date Type Department Care Team ([facility] Contact Info) Description 05/29/2023 Abstract [facility] [address] [place] [address] [place] [facility] [address] [place] [address] Social History Tobacco Use Types Packs/Day Years [...] documented as of this encounter Care Teams Storage Management Architect Relationship Specialty Start Date End Date Roro Stephens FNP [address] [place] [address] PCP - General Family Medicine 02/09/22 documented as of this encounter
== END 2025-02-10 11:52 | disposition home or self-care (01) ==
LOC: HO.HWS 11:24
PROVIDERS: PCP Registered Nurse; Visit Provider Obstetrics & Gynecology
DX: Z01.419 Encounter for gynecological examination (general) (routine) without abnormal findings (principal)
CPT/HCPCS: 99396; 99459

== ENCOUNTER 2025-02-24 11:49 | Outpatient (REF) | payer BC, SELFPAY ==
--- OUTSIDE RECORDS SUMMARY | 2025-02-24 14:36 | XMS_ITS | Encounter Summary ---
Author Organization [employer] Address [address] [place] [address] [address] [place] [address] Care Team Providers Care Data Management Consultant Name Role Phone [facility] Primary Care Provider [phone] Encounter Details Date Type Department Care Team ([facility] Contact Info) Description 05/29/2023 Abstract [facility] [address] [place] [address] [place] [facility] [address] [place] [address] Social History Tobacco Use Types Packs/Day Years [...] documented as of this encounter Care Teams Data Management Consultant Relationship Specialty Start Date End Date Roro Stephens FNP [address] [place] [address] PCP - General Family Medicine 02/09/22 documented as of this encounter
--- OUTSIDE RECORDS SUMMARY | 2025-02-24 14:36 | XMS_ITS | Clinical Summary ---
Author Organization [facility] Address [address] [place] [address] Care Team Providers Care Pcat Instructor Name Role Phone Unknown Primary Care Provider [phone] Allergies No known active allergies Medications Medication [...] age to complete this topic Care Teams Pcat Instructor Relationship Specialty Start Date End Date Unknown Unknow Provider Address PCP - General 10/02/24
--- OUTSIDE RECORDS SUMMARY | 2025-02-24 14:36 | XMS_ITS | Data Portability ---
Author Organization [facility], Primary Care [facility] Address [address] [address] Assessment No assessment recorded. Plan of Treatment [...] D, 25-hydrox y, total, serum 2024 026 [facility], [address] [place] [address], [id number], 01/03/2025 10:33:21 HbA1c (hemoglob in A1c), blood 2024 026 [facility], [address] [place] [address], [address], 01/03/2025 10:33:21 TSH, serum, reflex free T4 2024 026 [facility], [address] [place], [address], 01/03/2025 10:33:21 CMP, serum or plasma 2024 026 [facility], [address] [place] [address], [address], 01/03/2025 10:33:21 CBC w/ auto diff 2024 026 [facility], [address] [place], [address], 01/03/2025 10:33:21 lipid panel, serum 2024 026 [facility], [address] [place] [address], [address], 01/03/2025 10:33:21 vitamin B12, serum 2024 026 [facility], [address] [place] [address], [address], 01/03/2025 10:33:21 magnesium , serum or plasma 2024 026 [facility], [address] [place] [address], [address], 01/03/2025 10:33:21 Referral gastroent erologist referral 2024 025 [email or web address] [facility] (G[facility]), [address] [place] [address], [address], 01/12/2025 13:05:34 Procedures None recorded. Surgeries None recorded. Imaging None recorded. Medication Orders None recorded. Patient TargetsNo targets recorded. Patient InstructionsNo instructions recorded. Reason for Referral Contracting Manager Referral for Screening for malignant neoplasm of colon Referring Physician: Amanda King, Internal Medicine, Encounter Date: 01/03/2025 Results Created Date Observation Date Name Description Value Unit Range Abnormal Flag Note LastModifiedBy Organization Detail LastModifiedTime 01/06/2001/06/2025 COMPL ETE BLOOD COUNT AUTO DIFF white blood count 4.5 /cumm 4.8-10 .8 low Not Available [address], [address], 01/06/2025 14:44:37 01/06/20 25 01/06/2025 COMPL ETE BLOOD COUNT AUTO DIFF red blood count 4.69 /cumm 4.20-5 .40 normal Not Available [address], [address], 01/06/2025 14:44:37 01/06/20 25 01/06/2025 COMPL ETE BLOOD COUNT AUTO DIFF hemoglobin 14.2 g/dL 12.0-1 6.0 normal Not Available [facility] [address] [place], [address], 01/06/2025 14:44:37 01/06/20 25 01/06/2025 COMPL ETE BLOOD COUNT AUTO DIFF hematocrit 43.3 % 37-47 normal Not Available [facility] [address] [place], [address], 01/06/2025 14:44:37 01/06/20 25 01/06/2025 COMPL ETE BLOOD COUNT AUTO DIFF mean corpuscular volume 92.3 fL 80.0-9 6.0 normal Not Available [facility] [address] [place] [address], [address], 01/06/2025 14:44:37 01/06/20 25 01/06/2025 COMPL ETE BLOOD COUNT AUTO DIFF mean corpuscular hemoglobin 30.3 pg 27.0-3 1.0 normal Not Available [facility] [address] [place], [address], 01/06/2025 14:44:37 01/06/20 25 01/06/2025 COMPL ETE BLOOD COUNT AUTO DIFF mean corpuscular HGB conc 32.8 g/dL 32.0-3 7.0 normal Not Available [facility] [address] [place], [address], 01/06/2025 14:44:37 01/06/20 25 01/06/2025 COMPL ETE BLOOD COUNT AUTO DIFF red cell distribution width 12.0 % 11.5-1 4.5 normal Not Available [facility] [address] [place] [address], [address], 01/06/2025 14:44:37 01/06/20 25 01/06/2025 COMPL ETE BLOOD COUNT AUTO DIFF platelet count 272 /cumm 140-44 0 normal Not Available [facility] [address] [place], [address], 01/06/2025 14:44:37 01/06/20 25 01/06/2025 COMPL ETE BLOOD COUNT AUTO DIFF mean platelet volume 10.4 fL 7.4-12 .0 normal Not Available [facility] [address] [place], [address], 01/06/2025 14:44:37 01/06/20 25 01/06/2025 COMPL ETE BLOOD COUNT AUTO DIFF granulocytes percent auto 40.3 % 40.0-7 2.0 normal Not Available [facility] [address] [place] [address], [address], 01/06/2025 14:44:37 01/06/20 25 01/06/2025 COMPL ETE BLOOD COUNT AUTO DIFF lymphocytes percent auto 33.6 % 20.0-5 1.0 normal Not Available [facility] [address] [place], [address], 01/06/2025 14:44:37 01/06/20 25 01/06/2025 COMPL ETE BLOOD COUNT AUTO DIFF monocytes percent auto 13.1 % 1.0-13 .0 high Not Available [facility] [address] [place], [address], 01/06/2025 14:44:37 01/06/20 25 01/06/2025 COMPL ETE BLOOD COUNT AUTO DIFF eosinophils percent auto 11.3 % 0-7.0 high Not Available [facility] [address] [place], [address], 01/06/2025 14:44:37 01/06/20 25 01/06/2025 COMPL ETE BLOOD COUNT AUTO DIFF basophils percent auto 1.3 % 0-2.0 normal Not Available [facility] [address] [place], [address], 01/06/2025 14:44:37 01/06/20 25 01/06/2025 COMPL ETE BLOOD COUNT AUTO DIFF immature granulocyte percent 0.4 % 0-1.0 normal Not Available [facility] [address] [place], [address], 01/06/2025 14:44:37 01/06/20 25 01/06/2025 COMPL ETE BLOOD COUNT AUTO DIFF granulocytes absolute auto 1.8 /cumm 1.0-7. 0 normal Not Available [facility] [address] [place], [address], 01/06/2025 14:44:37 01/06/20 25 01/06/2025 COMPL ETE BLOOD COUNT AUTO DIFF lymphocytes absolute auto 1.5 /cumm 1.0-4. 0 normal Not Available [facility] [address] [place], [address], 01/06/2025 14:44:37 01/06/20 25 01/06/2025 COMPL ETE BLOOD COUNT AUTO DIFF monocytes absolute auto 0.6 /cumm 0-1.0 normal Not Available [facility] [address] [place], [address], 01/06/2025 14:44:37 01/06/20 25 01/06/2025 COMPL ETE BLOOD COUNT AUTO DIFF eosinophils absolute auto 0.5 /cumm 0-1.0 normal Not Available [facility] [address] [place], [address], 01/06/2025 14:44:37 01/06/20 25 01/06/2025 COMPL ETE BLOOD COUNT AUTO DIFF basophils absolute auto 0.1 /cumm 0-0.2 normal Not Available [facility] [address] [place], [address], 01/06/2025 14:44:37 01/06/20 25 01/06/2025 COMPL ETE BLOOD COUNT AUTO DIFF immature gran absolute auto 0.0 /cumm 0-0.3 normal Not Available [facility] [address] [place], [address], 01/06/2025 14:44:37 01/06/20 25 01/06/2025 COMPR EHENS CARMINA METAB OLIC PANEL glucose 96 mg/dL 74-106 normal Not Available [facility] [address] [place] [address], [address], 01/06/2025 15:22:32 01/06/20 25 01/06/2025 COMPR EHENS CARMINA METAB OLIC PANEL BUN 14.6 mg/dL 9-23 normal Not Available [facility] [address] [place], [address], 01/06/2025 15:22:32 01/06/20 25 01/06/2025 COMPR EHENS CARMINA METAB OLIC PANEL creatinine 0.66 mg/dL 0.55-1 .02 normal Not Available [facility] [address] [place], [address], 01/06/2025 15:22:32 01/06/20 25 01/06/2025 COMPR EHENS CARMINA METAB OLIC PANEL BUN creatinine ratio 22 % 7-25 normal Not Available [facility] [address] [place], [address], 01/06/2025 15:22:32 01/06/20 25 01/06/2025 COMPR EHENS CARMINA METAB OLIC PANEL estimated glomerular filt rate > 60.0 mL/mi n >60 normal Not Available [facility] [address] [place], [address], 01/06/2025 15:22:32 01/06/20 25 01/06/2025 COMPR EHENS CARMINA METAB OLIC PANEL estimated GFR ( reji > 60 mL/mi n >60 normal Not Available [facility] [address] [place], [address], 01/06/2025 15:22:32 01/06/20 25 01/06/2025 COMPR EHENS CARMINA METAB OLIC PANEL sodium 145 mmol/ L 136-14 5 normal Not Available [facility] [address] [place], [address], 01/06/2025 15:22:32 01/06/20 25 01/06/2025 COMPR EHENS CARMINA METAB OLIC PANEL potassium 4.4 mmol/ L 3.5-5. 1 normal Not Available [facility] [address] [place] [address], [address], 01/06/2025 15:22:32 01/06/20 25 01/06/2025 COMPR EHENS CARMINA METAB OLIC PANEL chloride 109 mmol/ L 98-107 high Not Available [facility] [address] [place], [address], 01/06/2025 15:22:32 01/06/20 25 01/06/2025 COMPR EHENS CARMINA METAB OLIC PANEL carbon dioxide 28 mmol/ L 20-31 normal Not Available [facility] [address] [place] [address], [address], 01/06/2025 15:22:32 01/06/20 25 01/06/2025 COMPR EHENS CARMINA METAB OLIC PANEL anion gap 7.8 mmol/ L 5-16 normal Not Available [facility] [address] [place], [address], 01/06/2025 15:22:32 01/06/20 25 01/06/2025 COMPR EHENS CARMINA METAB OLIC PANEL calcium 9.8 mg/dL 8.7-10 .4 normal Not Available [facility] [address] [place] [address], [address], 01/06/2025 15:22:32 01/06/20 25 01/06/2025 COMPR EHENS CARMINA METAB OLIC PANEL total protein 6.9 g/dL 5.7-8. 2 normal Not Available [facility] [address] [place] [address], [address], 01/06/2025 15:22:32 01/06/20 25 01/06/2025 COMPR EHENS CARMINA METAB OLIC PANEL albumin level 4.5 g/dL 3.2-4. 8 normal Not Available [facility] [address] [place], [address], 01/06/2025 15:22:32 01/06/20 25 01/06/2025 COMPR EHENS CARMINA METAB OLIC PANEL globulin 2.4 g/dL 1.9-4. 1 normal Not Available [facility] [address] [place], [address], 01/06/2025 15:22:32 01/06/20 25 01/06/2025 COMPR EHENS CARMINA METAB OLIC PANEL albumin globulin ratio 1.9 % 1.1-2. 2 normal Not Available [facility] [address] [place], [address], 01/06/2025 15:22:32 01/06/20 25 01/06/2025 COMPR EHENS CARMINA METAB OLIC PANEL bilirubin,to jah 0.3 mg/dL 0.3-1. 2 normal Not Available [facility] [address] [place], [address], 01/06/2025 15:22:32 01/06/20 25 01/06/2025 COMPR EHENS CARMINA METAB OLIC PANEL alkaline phosphatase 90 U/L 46-110 normal Not Available [facility] [address] [place], [address], 01/06/2025 15:22:32 01/06/20 25 01/06/2025 COMPR EHENS CARMINA METAB OLIC PANEL aspartate amino transferase 21 U/L 0.0-33 .9 normal Not Available [facility] [address] [place], [address], 01/06/2025 15:22:32 01/06/20 25 01/06/2025 COMPR EHENS CARMINA METAB OLIC PANEL alanine aminotransfe rase 27 U/L 10-49 normal Not Available [facility] [address] [place], [address], 01/06/2025 15:22:32 01/06/20 25 01/06/2025 LIPID PANEL cholesterol 205 mg/dL <200 high Not Available [facility] [address] [place], [address], 01/06/2025 15:22:34 01/06/20 25 01/06/2025 LIPID PANEL triglyceride s 98 mg/dL <150 normal Not Available [facility] [address] [place], [address], 01/06/2025 15:22:34 01/06/20 25 01/06/2025 LIPID PANEL HDL cholesterol 42.4 mg/dL 40-60 normal Not Available [facility] [address] [place], [address], 01/06/2025 15:22:34 01/06/20 25 01/06/2025 LIPID PANEL LDL cholesterol calculated 142.6 mg/dL 65-129 high Not Available [facility] [address] [place], [address], 01/06/2025 15:22:34 01/06/20 25 01/06/2025 LIPID PANEL chol HDL ratio 4.80 % 0.00-4 .23 high Not Available [facility] [address] [place], [address], 01/06/2025 15:22:34 01/06/20 25 01/06/2025 VITAM IN B12 vitamin B12 703 pg/mL 211-91 1 normal Not Available [facility] [address] [place], [address], 01/06/2025 15:22:35 01/06/20 25 01/06/2025 FREE T4 FREE THYRO XINE free T4 free thyroxine 0.89 NG/dL 0.89-1 .76 normal Not Available [facility] [address] [place], [address], 01/06/2025 15:22:37 01/06/20 25 01/06/2025 TSH WITH REFLE X FT4/T T3 TSH with reflex FT4/TT3 4.669 uIU/m L 0.48-4 .17 high Not Available [facility] [address] [place], [address], 01/06/2025 15:22:38 01/06/20 25 01/06/2025 VITD 25 HYDRO XY vitd 25 hydroxy 32.8 NG/mL 30-100 normal Not Available [facility] [address] [place], [address], 01/06/2025 15:22:40 01/06/20 25 01/07/2025 HEMOG LOBIN A1C hemoglobin A1C 5.7 % 4.2-5. 8 normal Not Available [facility] [address] [place], [address], 01/07/2025 10:25:27 Result Notes None recorded. Problems Name Problem SNOMED Code Status Onset Date Resolution Date Notes Provider Name and Address Organization Details Recorded Time Vitamin D deficiency 91843597 Active 2024 Amanda Kign APRN [address], [place], [address], [facility] 09:32:18 Mild intermittent asthma 721174044 Active 2024 Amanda King APRN [address], [place], [address], [facility] 5 10:21:03 Problem Notes None recorded. Procedures Surgical History Date Name Laterality Status Provider Name and Address Organization Details Recorded Time 11/19/1983 Other completed Martha Chadwick [facility] 01/03/2025 10:14:49 Imaging Results None [...] active Not Available Not Available Not Available Tabiona Oil 1,000 mg capsule Take 1 capsule [...] /min 98 % 98 % 16 /min 64658.0 8 g 31.9 kg/m2 154.31 cm 110 mm[Hg] 70 mm[Hg] Martha SOTELO [facility], [facility] 10:09:48 Social History Question Answer Notes LastModified by [employer] Details LastModified Time Tobacco Smoking Status Never Smoker ASHLEIGH Perez [facility], [facility] 01/03/2025 10:14:00 Do You Have An Advance Directive? No Information not available 01/03/2025 Are You Blind Or Do You Have Difficulty Seeing? No Information not available 01/03/2025 Are You Deaf Or Do You Have Serious Difficulty Hearing? No Information not available 01/03/2025 Do You Feel Safe At Home? Yes Information not available 01/03/2025 Do You Have A Medical Power Of Photo Studio Assistant? No Information not available 01/03/2025 What Was [...] SNOMED-CT Code Diagnosis ICD10 Code Diagnosis Note [id number] Amanda King APRN Primary Care [address] [address] 01/03/2025 10:00:17 01/03/2025 10:35:05 Adult health examination 621168030 Z00.00 flu declinestd ap duemammogr am has upcoming appt 01/2025Gyn has upcoming appt 01/20256783LPF3 0colonosco py referral entered Vitamin D deficiency 347 [address] E55.9 Screening for malignant neoplasm of colon 209812946 Z12.11 Depression screening 171 644030 Z13.31 Screening for depression - completed PHQ9. 5 to 15 minutes time spent to: Administer a screening tool Interpret the results Use the results as appropriat e Screening for malignant neoplasm of breast 549045572 Z12.January Screening for malignant neoplasm of cervix 286089040 Z12.4 2024 Mild inter mittent asthma 430982865 J45.20 montelukas t and cetirizine Health Concerns Section Related Observation LastModified by Organization Detai ls LastModified Time None Recorded Concern Status LastModified by Organization Details LastModified Time None Recorded Advance Directives Directive N: Payers Encounter Date Sequence Insurance Name Policy Number Policy Monsalve Covered Member ID Monsalve Member ID Guarantor Name 01/03/2025 1 [place] [employer]UE [employer]IELD (PPO) [id number] Livan Sutton [id number] Livan Sutton Notes Date Note Type Note [...] Medical History:- Asthma- Allergies- Menopause- Works at [employer] standing 10 hours/dayMedicatio ns:- Montelukast (prescribed for 3 months)- Cetirizine- Vitamin C- Vitamin D- Evening primrose oilObjective:- Alert and oriented- Speaking in mix of [place] and Stateless, good comprehensionAsses sment:- Routine wellness exam- Menopausal symptoms- Constipation, well-managed with natural remediesPlan:- Labs ordered for next week (01/08/2025):- CBC- CMP- Lipid panel- TSH- HbA1C- B12- Vitamin D- Magnesium- GI referral for colonoscopy- Gynecology follow-up next month- Return in 1 year for annual wellness visit- Will contact if any abnormal results- Portal messaging available for questions/concerns Amanda King, JENNIFER [address], [place], [address], [place] [facility] 01/03/2025 12:09:49 OBGyn Episode No OBEpisode recorded.
--- OUTSIDE RECORDS SUMMARY | 2025-02-24 14:36 | XMS_ITS | Clinical Summary ---
Author Organization [employer] Address [address] [place] [address] [address] [place] [address] Care Team Providers Care Delivery Coordinator Name Role Phone Roro Stephens [facility] Primary Care Provider [phone] Allergies No known active allergies Medications sodium chloride ([place] Nasal [place]) 0.65 % nasal sprayIndication s:Acute mucoid otitis [...] of visit NIL HPV +. Referred to [facility] Dr. Brown for PMB follow up and colpo for abnormal pap Assessment & Plan (06/26/2023 5:57 AM EDT): Reviewed indication for PMB with patient and typical steps of procedure Patient will follow up with [facility] as scheduled Mixed hyperlipidemia 05/18/2023 Overview (06/15/2023): ?? Managed with diet alone ?? ASCVD 1.7% 04/2023 Assessment & Plan (06/26/2023 5:58 AM EDT): ?? Well controlled with diet alone ?? Continue with current lifestyle recommendations Assessment & Plan (05/18/2023 12:02 PM EDT): ?? Repeat lipid panel today Healthcare maintenance 05/18/2023 Overview (05/18/2023): Mammo: 04/2023 Pap: 04/2023- NIL HPV+, referred to [facility] C-scope: Referred for screening 02/2022 BMD: Routine age 67 Asthma 03/08/2022 Overview (05/18/2023): ?? Albuterol ?? Singulair ?? Claritin ?? No hx of hospitalizations Assessment & Plan (05/18/2023 11:07 AM EDT): ?? Well controlled ?? Continue current regimen Encounters Date Type Department Care Team Description 02/10/2025 Orders Only GENERIC EXTERNAL DATA DEPARTMENT Provider, Generic External Data from Last 3 Months Family History Medical History Relation Name Comments [...] 1972 FIT 1972 FOBT 1972 Sigmoidoscopy 1972 Alcohol/Substance Use Screening 1984 Family Planning (PISQ) [...] 5 season) 2024 Influenza Vaccine (#1) 2024 Mammogram 05/08/2025 05/08/2023, 05/08/2023 Cervical Cancer Screening 02/10/2026 HPV/Cotest 02/10/2026 02/10/2025, 05/02/2023, 05/02/2023 Pap Smear 02/10/2026 02/10/2025, 05/02/2023 RSV Patients and Patients Aged 60 years [...] Procedure Name Priority Date/Time Associated Diagnosis Comments PAP SMEAR Routine 02/10/2025 11:51 AM EDT HPV DNA, LOW/HIGH RISK Routine 02/10/2025 11:51 AM EDT BI MAMMOGRAM SCREENING BILATERAL Routine 05/08/2023 Breast cancer screening by mammogram ZZZ HISTORICAL HEPATITIS C AB W/REFL TO HCV RNA, QN, PCR Routine 03/08/2022 10:41 AM EDT HIV 1/2 ANTIGEN/ANTIBODY, FOURTH GENERATION W/RFL Routine 03/08/2022 10:41 AM EDT from Last 3 Months or Most Recently Relevant to Health Maintenance Results * (ABNORMAL) HPV DNA, Low/High Risk (02/10/2025 11:51 AM EDT) HPV High Risk Negative Negative [facility] HPV Genotype 16 Positive(A) Negative [facility] HPV Genotype 18 Negative Negative [facility] Comment:HPV testing performe d at [facility] (CLIA#[id number]), [address] [place] [address].Testing for HPV was performed using the Eneida SHAGGY 6800system. The presence of HPV in the female genital tract isassociated with a number of diseases, including cervicalcarcinoma. The HPV DNA high risk pool tests for HPV 31, 33,35, 39, 45, 51, 52, 56, 58, 59, 66 and 68. The testing forHPV 16 and 18 genotypes has also been performed. A positiveresult indicates detection of nucleic acid sequences fromone or more subtypes, whereas a negative result indicatessuch sequences were not detected. 02/10/2025 11:5 1 AM EDT 02/11/2025 7:30 AM EDT us Generic External Data Provider LAB BLOOD ORDERAB LES Final Result [facility] [address] [place] [phone] * Pap Smear (02/10/2025 11:51 AM EDT) 02/10/2025 11:5 1 AM EDT 02/11/2025 7:30 AM EDT Narrative [facility] - 02/17/2025 11:58 AM EDT ----- ------- Name: Livan Snell ?Age/Sex: 54/F ? : 1970 Unit#: [id number] ?? Attend Dr: Minor Brown MD ?Re02/10/25 ?Status: DEP REF ? Location: HO.LNP ?Disch: ? ----- ------- SPEC : [id number] ? RECD: 02/11/25 ? STATUS: ??SOUT ? REQ NUM: [id number] ? SONYA: 02/10/25-115 ? SUBM DR: Minor Brown MD ? ENTERED: ??02/11/25-1437 ?SP TYPE: Pap Smr ?OTHR DR: Roro Stephens PROGRAM DEVELOPMENT SPECIALIST ? ORDERED: ??Pap Smear ? Interpretation ?? Satisfactory for evaluation. ?? Negative for intraepithelial lesion or malignancy. ? HPV High Risk: ??Negative ? HPV Genotyping 16: ??Positive ?? HPV Genotyping 18: ??Negative ?Clinical Information LMP: postmenopausal Previous PAP test:Unknown date/findings ? Material Received ?? ThinPrep-Cervical Copies To: ?? [place] PROGRAM DEVELOPMENT SPECIALIST ?? [address] ?? [place] [address] ?? [phone] ?? Minor Brown MD ?? [facility] Women[facility] Services ?? [address] [facility] [address] ?? [place] [address] ?? [phone] ----- ------- Signed (signature on file) ASHLEIGH Robbins (ASCP) 02/17/25 0838 ? ----- ------- ? END OF REPORT ? us Generic External Data Provider LAB CYTOLOGY NAPOLEON KENDRICK Final Result [facility] [address] [place] [address] [phone] * BI Mammogram Screening Bilateral (05/08/2023) Anatomical Region Laterality Modality Breast Bilateral Mammography 05/08/2023 Narrative 05/08/2023 2:55 PM EDT Bir[place] 1 routine screening recommended, see scanned report Amberly Huynh CNM IMG BI PROCEDURES Final R esult * HEPATITIS C AB W/REFL TO HCV RNA, QN, PCR (03/08/2022 10:41 AM EDT) HEPATITIS C ANTIBODY NON-REACT CARMINA NON-REACT CARMINA [facility] INDEX 0.03 <1.00 [facility] Comment: ?? HCV antibody was non-reactive. There is no laboratory ?? evidence of HCV infection. ?? In most cases, no further action is required. However, if recent HCV exposure is suspected, a test for HCV RNA (test code 56187) is suggested. ?? For additional information please refer to http://education.Earn and Play/faq/TMC55u7 (This link is being provided for informational/ educational purposes only.) ?? 03/08/2022 10:4 1 AM EDT [facility] PROGRAM DEVELOPMENT SPECIALIST HISTORICAL/NON ORDERABLE LABS Final Result [facility] [address] * HIV 1/2 ANTIGEN/ANTIBODY,FOURTH GENERATION W/RFL (03/08/2022 10:41 AM EDT) HIV-1/2 ANTIGEN AND ANTIBODIES, 4TH GENERATION W/ REFLEX NON-REACT CARMINA NON-REACT CARMINA [facility] Comment: HIV-1 antigen and HIV-1/HIV-2 [...] ? For additional information please refer to http://Base CRM.Earn and Play/faq/TWC301 (This link is being provided for informational/ educational purposes only.) ? The performance of this assay has not been clinically validated in patients less than 2 years old. ?? 03/08/2022 10:4 1 AM EDT [facility] LAB BLOOD ORDERABLES Final Re sult Performing Organization Address City/State/[facility] Co de Phone Number [facility] [address] from Last 3 Months or Most Recently Relevant to Health Maintenance Insurance [facility] Care Teams Delivery Coordinator Relationship Specialty Start Date End Date Roro Stephens FNP [address] [place] [phone] PCP - General Family Medicine 02/09/22
--- OUTSIDE RECORDS SUMMARY | 2025-02-24 14:36 | XMS_ITS | Encounter Summary ---
Author Organization [employer] Address [address] [facility] 7t [place] [address] Care Team Providers Care Rail Director Name Role Phone Roro Stephens SURGICAL ATTENDANT Primary Care Provider [phone] Encounter Details Date Type Department Care Team ([facility] st Contact Info) Description 08/28/2023 Orders Only [facility] MEDICINE [address] [place] [address] Mary Vuong RN [address] [place], [place] [phone] Social History Tobacco Use Types Packs/Day Years [...] EST Narrative 09/26/2023 7:43 AM EST ? [facility] ?[address] ?[place] [address] ? Ultrasound Report ? Signed ? Patient: Livan Snell ?MR ?? #: [id number] ? : 1970 ?Acct:[id number] ? Age/Sex: 52 / F ?ADM Date: 09/24/23 ? Loc: HO.US ? Attending Dr: Minor Brown MD ? Ordering Physician: Minor Brown MD ?? Date of Service: 09/24/23 ?? Procedure(s): US pelvic and transvaginal ?? Accession Number(s): [id number] ? cc: Roro Stephens SURGICAL ATTENDANT; Minor Brown MD ? EXAMINATION: ? US [...] 0739 ? DD/ 1204 ? TD/TT: ? Loader Operator Supervisor: ? Procedure Note Adeola Feliciano - 09/26/[address] [address] Ultrasound Report Signed Patient: Livan SnellMR #: [id number] : 1970Acct:[id number] Age/Sex: 52 / FADM Date: 09/24/23 Loc: HO.US Attending Dr: Minor Brown MD Ordering Physician: Minor Brown MD Date of Service: 09/24/23 Procedure(s): US pelvic and transvaginal Accession Number(s): [id number] cc: Roro Stephens SURGICAL ATTENDANT; Minor Brown MD EXAMINATION: US PELVIS CLINICAL [...] MD Signed By: <Electronically signed by Sherri Snady MD in OV> 09/26/23 0739 DD/ 1204 TD/TT: Loader Operator Supervisor: us [facility] External Provider IMG US PROCEDURES Final Result * Biopsy cervix (08/23/2023 12:00 AM EDT) Minor Bronw MD IN CLINIC/BEDSIDE ORDERABLES Fin al Result [facility] [address] [place] [phone] documented in this encounter Visit Diagnoses Not on filedocumented in this encounter Additional Health Concerns Assessment Noted Time PHQ-9 Depression Total Score: 0 07/28/20 23 3:29 PM EDT documented as of this encounter Care Teams Rail Director Relationship Specialty Start Date End Date Roro Stephens FNP [address] [place] [address] PCP - General Family Medicine 02/09/22 documented as of this encounter
--- OUTSIDE RECORDS SUMMARY | 2025-02-24 14:36 | XMS_ITS | Encounter Summary ---
Author Organization [employer] Address [address] [place] [address] 7t [place] [address] Care Team Providers Care Cell Tester Name Role Phone [facility] Primary Care Provider [phone] Encounter Details Date Type Department Care Team ([facility] st Contact Info) Description 05/29/2023 Abstract [facility] MEDICINE [address] [place] [address] VashonRoro [facility] [address] [place] [address] Social History Tobacco Use Types Packs/Day Years [...] documented as of this encounter Care Teams Cell Tester Relationship Specialty Start Date End Date Roro Stephens FNP [address] [place] [address] PCP - General Family Medicine 02/09/22 documented as of this encounter
== END 2025-02-24 11:50 | disposition home or self-care (01) ==
LOC: HO.MAMMO 11:49
PROVIDERS: PCP Registered Nurse; Visit Provider Obstetrics & Gynecology
DX: Z12.31 Encounter for screening mammogram for malignant neoplasm of breast (principal)
CPT/HCPCS: 77063; 77067

== ENCOUNTER → 2025-02-24 12:00 | Outpatient (BNV) | payer BC, SELFPAY | PROVIDERS: PCP Registered Nurse; Visit Provider Internal Medicine | DX: Z12.31 Encounter for screening mammogram for malignant neoplasm of breast (principal) | CPT/HCPCS: 77063; 77067 ==

== ENCOUNTER 2025-03-24 11:48 | Outpatient (REF) | payer BC, SELFPAY | END 2025-03-24 11:49 | disposition home or self-care (01) | LOC: HO.LNP 11:48 | PROVIDERS: PCP Registered Nurse; Visit Provider Obstetrics & Gynecology | DX: R87.810 Cervical high risk human papillomavirus (HPV) DNA test positive (principal) | CPT/HCPCS: 57454; 88305; 88341; 88342 ==

== ENCOUNTER 2025-03-24 11:48 | Outpatient (AMB) | payer BC, SELFPAY ==
[2025-03-24 11:50] VITALS: BMI 30.5
--- NOTE | 2025-03-24 11:50 | MHC.OFFVIS ---
Vital Signs 03/24/25 11:50 Height 5 ft 2 in Weight 167 lb BMI 30.5 Intake Visit Reasons: Colposcopy Data Operations Leader Required: Yes Data Operations Leader Language: Railway Station Manager Services: Data Operations Leader Present (in person) Data Operations Leader Name: Anusha THORNTON Information Interpreted: non-clinical & clinical Build Manager: Build Manager Present (Anusha THORNTON) Accompanied by: Mother Allergies No Known Allergies Allergy (Verified 03/24/25 11:51) Post menopausal: Yes HPI Comments Details: The patient is presenting for evaluation of normal Pap, HPV 16 positive. No other associated symptoms PFSH Medical History (Updated 03/24/25 @ 11:58 by Minor Brown MD) Cervical high risk HPV (human papillomavirus) test positive Asthma Gastritis Surgical History H/O colonoscopy Hx of adenoidectomy Hx of tonsillectomy Family History Mother HTN (hypertension) Uterine cancer Father No problems noted. Social History Household Members: Significant Other Alcohol intake: current Alcohol intake frequency: does not drink Patient Tobacco Use Status: Never used Tobacco Current occupational status: employed Current occupation: [employer] x 2-3years Sexual orientation: Straight/Heterosexual Gender identity: Female Review of Systems Const All systems reviewed & are unremarkable except as noted in HPI and below Reports as per HPI and Reports no additional complaints GI Reports no additional complaints Reports no additional complaints Physical Exam Vital Signs: BMI result Body Mass Index 30.5 Office Procedures Colposcopy Colposcopy: Pre-Procedure Counseling: Before beginning the procedure, I conducted comprehensive counseling with the patient. We thoroughly discussed the procedure itself, including its details, alternatives, and all associated risks. This included but not limited to the following complications such as bleeding, infection, and injury to the vagina, bladder, and vessels, as well as the potential need for transfusion with all its associated risks. Subsequently, the patient sign the consent. Pap smear result: Negative Pap/HPV 16 positive Urine test in office = Negative Procedure: During the procedure, the following steps were performed: A speculum was inserted, and acetic acid was applied. Colposcopy was conducted, allowing visualization of the transformation zone. Acetowhite lesions were identified at the 4+ 6+ 12 o'clock position. Cervical biopsies were obtained from the 4+ 6+ 12 o'clock position, followed by an endocervical curettage (ECC). Vaginoscopy of the upper vagina revealed no evidence of aceto-white lesions. Hemostasis was achieved using Monsel solution, and the patient tolerated the procedure well. Post-Procedure Instructions: The patient was advised to promptly contact the office or the after hours answering service or go to the emergency room if experiencing a temperature exceeding 100.4?F, abdominal pain, nausea/vomiting, or bleeding. Additionally, the patient was instructed to abstain from vaginal intercourse and bathtub use. The patient confirmed understanding of these instructions. Discharge Instructions: The patient was instructed to schedule a follow-up appointment in 2 weeks for further evaluation and management. Please note that this note was generated using a voice recognition program, and errors may have occurred during resident services manager. [id number] of cervix including upper vagina with biopsy and ECC Procedure code (CPT) selection complete Assessment & Plan Assessment & Plan (1) Cervical high risk HPV (human papillomavirus) test positive: Comment: Normal Pap/HPV 16 positive 05/11 Pap negative/HPV positive, colpo biopsy ECC negative Code(s): R87.810 - Cervical high risk human papillomavirus (HPV) DNA test positive Category: Medical Plan: Discussed with the patient the result of her HPV 16 positive, its significance, risk of progression, persistence, and regression. the false positive/negative rate of a Pap smear as a screening test in detecting cervical cancer and the indication for a diagnostic test -colposcopy, biopsy, endocervical curettage. The patient verbalized understanding and agreed with the plan, all questions answered. Colpo/biopsy/ECC done, see procedure note Orders: Orders AMB Colposcopy Today R87.810 - Cervical high risk human papillomavirus (HPV) DNA test positive Coding Level of Care Code Procedure Only Diagnoses Cervical high risk HPV (human papillomavirus) test positive R87.810 CPT Codes Colposcopy - CPT: 21910-Cykicswnl of cervix including upper vagina with biopsy and ECC ([id number])
--- OUTSIDE RECORDS SUMMARY | 2025-03-24 13:23 | XMS_ITS | Clinical Summary ---
Author Organization [facility] Address [address] [place] [address] Care Team Providers Care Acid Wash Operator Name Role Phone Unknown Primary Care Provider [phone] Allergies No known active allergies Medications OMEprazole (PriLOSEC) 20 MG capsuleIndicatio ns:Gastroesophag eal reflux disease, unspecified whether esophagitis present Take 1 capsule (20 mg total) by mouth every morning before breakfast. 14 capsule 10/02/2024 Active Active Problems No known active problems Social History Tobacco Use Types Packs/Day Years Used Date Smoking Tobacco: Never Assessed Comments Unknown Sex and Gender Information Value Date Recorded Sex Assigned at Not on file Legal Sex Female 5:58 PM EST Gender Identity Not on file Sexual Orientation [...] (1 of 3 - 19+ 3-dose series) 10/20 Pap Smear (Ages 21-65) 1993 Mammogram 2012 Colonoscopy 2017 Pneumococcal Vaccines 50+ (1 of 1 - PCV) 2022 Zoster (Shingles) Vaccine (1 of 2) 2022 Influenza Vaccine 06/19/2024 COVID-19 Vaccine (2023- season) 2024 Insurance [facility] - PPO Care Teams Acid Wash Operator Relationship Specialty Start Date End Date Unknown Unknow Provider Address PCP - General 10/02/24
--- OUTSIDE RECORDS SUMMARY | 2025-03-24 13:23 | XMS_ITS | Encounter Summary ---
Author Organization [employer] Address [address] [facility] 7t [place] [address] Care Team Providers Care Game Technician Name Role Phone Kat Roro SUPERVISOR DRY CELL ASSEMBLY Primary Care Provider [phone] Encounter Details Date Type Department Care Team ([facility] st Contact Info) Description 08/28/2023 Orders Only [facility] MEDICINE [address] [place] [address] Mary Vuong RN [address] [place] [address] Social History Tobacco Use Types Packs/Day Years [...] EST Narrative 09/26/2023 7:43 AM EST ? [facility] ?[address] ?[place] [address] ? Ultrasound Report ? Signed ? Patient: Herman Blanco,Livan ?MR ?? #: [id number] ? : 1970 ?Acct:[id number] ? Age/Sex: 52 / F ?ADM Date: 09/24/23 ? Loc: HO.US ? Attending Dr: Minor Brown MD ? Ordering Physician: Minor Brown MD ?? Date of Service: 09/24/23 ?? Procedure(s): US pelvic and transvaginal ?? Accession Number(s): [id number] ? cc: Roro Stephens SUPERVISOR DRY CELL ASSEMBLY; Minor Brown MD ? EXAMINATION: ? US [...] 0739 ? DD/ 1204 ? TD/TT: ? Email Campaign Manager: ? Procedure Note Adeola Feliciano - 09/26/[address] [address] Ultrasound Report Signed Patient: Livan SnellMR #: [id number] : 1970Acct:[id number] Age/Sex: 52 / FADM Date: 09/24/23 Loc: HO.US Attending Dr: Minor Brown MD Ordering Physician: Minor Brown MD Date of Service: 09/24/23 Procedure(s): US pelvic and transvaginal Accession Number(s): [id number] cc: Roro Stephens SUPERVISOR DRY CELL ASSEMBLY; Minor Brown MD EXAMINATION: US PELVIS CLINICAL [...] in OV> 09/26/23 0739 DD/ 1204 TD/TT: Email Campaign Manager: us [facility] External Provider IMG US PROCEDURES Final Result * Biopsy cervix (08/23/2023 12:00 AM EDT) Minor Brown MD IN CLINIC/BEDSIDE ORDERABLES Fin al Result [facility] [address] [place] [phone] documented in this encounter Visit Diagnoses Not on filedocumented in this encounter Additional Health Concerns Assessment Noted Time PHQ-9 Depression Total Score: 0 07/28/20 23 3:29 PM EDT documented as of this encounter Care Teams Game Technician Relationship Specialty Start Date End Date Kat SCOTT Read [address] [place] [address] PCP - General Family Medicine 02/09/22 documented as of this encounter
--- OUTSIDE RECORDS SUMMARY | 2025-03-24 13:23 | XMS_ITS | Clinical Summary ---
Author Organization [employer] Address [address] [place] [address] 7t [place] [address] Care Team Providers Care Nuclear Radiation Engineer Name Role Phone Roro Stephens [facility] Primary Care Provider [phone] Allergies No known active allergies Medications sodium chloride (Harding Nasal [place]) 0.65 % nasal sprayIndication s:Acute mucoid otitis [...] of visit NIL HPV +. Referred to SENIOR LEAD DEVELOPER Dr. Brown for PMB follow up and colpo for abnormal pap Assessment & Plan (06/26/2023 5:57 AM EDT): Reviewed indication for PMB with patient and typical steps of procedure Patient will follow up with SENIOR LEAD DEVELOPER as scheduled Mixed hyperlipidemia 05/18/2023 Overview (06/15/2023): ?? Managed with diet alone ?? ASCVD 1.7% 04/2023 Assessment & Plan (06/26/2023 5:58 AM EDT): ?? Well controlled with diet alone ?? Continue with current lifestyle recommendations Assessment & Plan (05/18/2023 12:02 PM EDT): ?? Repeat lipid panel today Healthcare maintenance 05/18/2023 Overview (05/18/2023): Mammo: 04/2023 Pap: 04/2023- NIL HPV+, referred to SENIOR LEAD DEVELOPER C-scope: Referred for screening 02/2022 BMD: Routine [...] Influenza Vaccine (#1) 2024 Cervical Cancer Screening 02/10/2026 HPV/Cotest 02/10/2026 02/10/2025, 05/02/2023, 05/02/2023 Pap Smear 02/10/2026 02/10/2025, 05/02/2023 Mammogram 02/24/2027 02/24/2025, 05/08/2023, 05/08/2023 RSV Patients and Patients Aged [...] Date/Time Associated Diagnosis Comments BI MAMMOGRAM SCREENING TOMOSYNTHESIS BILATERAL Routine 02/24/2025 12:00 PM EDT PAP SMEAR Routine 02/10/2025 11:51 AM EDT HPV DNA, LOW/HIGH RISK Routine 11:51 AM EDT ZZZ HISTORICAL HEPATITIS C AB W/REFL TO HCV RNA, QN, PCR Routine 03/08/2022 10:41 AM EDT HIV 1/2 ANTIGEN/ANTIBODY, FOURTH GENERATION W/RFL Routine 03/08/2022 10:41 AM EDT from Last 3 Months or Most Recently Relevant to Health Maintenance Results * BI Mammogram Screening Tomosynthesis Bilateral (02/24/2025 12:00 PM EDT) Anatomical Region Laterality Modality Breast Bilateral Mammography 02/24/2025 12:0 0 PM EDT Narrative 03/02/2025 4:46 PM EDT ? [facility] [place] ? [address] ?[place] [address] ?[phone] ? Mammography Report ? Signed ? Patient: Livan Snell ?MR ?? #: [id number] ? : 1970 ?Acct:[id number] ? Age/Sex: 54 / F ?ADM Date: 02/24/25 ? Loc: HO.MAMMO ? Attending Dr: Minor Brown MD ? Ordering Physician: Minor Brown MD ?Results: 1Negativ ?? e ? Date of Service: 02/24/25 ?Follow Up: 1 Year From Orig ?? inal Mammogram ? Procedure(s): MM tomosynthesis screening BI ?? Accession Number(s): [id number] ? cc: Roro Stephens GOLF COURSE RANGER; Minor Brown MD ? EXAMINATION: ?? MM SCREENING DIGITAL BREAST TOMOSYNTHESIS, BILATERAL ? CLINICAL INFORMATION: ? Screening. Asymptomatic. ? COMPARISON: ?? Mammography: Comparison is made with available priors ? TECHNIQUE: ?? Digital breast mammography with tomosynthesis is performed in both the ?? craniocaudal and mediolateral oblique views along with computer-aided ?? detection (CAD). ? FINDINGS: ?? The breasts are heterogeneously dense, which may obscure small masses ?? (ACR BI-RADS breast composition Category c). ? There are no significant masses, abnormal calcifications, or other ?? abnormalities. ? MM/MM tomosynthesis screening BI ?? IMPRESSION: ?? No mammographic evidence of malignancy. ? ASSESSMENT: ? BI-RADS BI-RADS 1 - Negative ? RECOMMENDATION: ?? Routine annual mammography screening. ? 1 year F/U ? This examination should not preclude the clinical evaluation of a ?? suspicious palpable abnormality. ? This patient's information was entered into a reminder system with a ?? target due date for their next mammogram. ? Electronically signed by: ??Renata Ríos DO ??03/02/2025 04:43 PM EDT ? Dictated By: ?Renata Ríos DO ? Signed By: ?<Electronically signed by Renata Tyminski, DO in OV> ? 03/02/25 1643 ? DD/ 1200 ? TD/TT: 02/24/25 1220 ? Warp Spinner: ? Procedure Note Adeola Feliciano - 03/02/2025 [facility] [address] [place] [address] [place] [address] Mammography Report Signed Patient: Livan Snell #: [id number] : 1970Acct:[id number] Age/Sex: 54 / FADM Date: 02/24/25 Loc: [place] Attending Dr: Minor Brown MD Ordering Physician: Minor Brownesults: 1Negativ e Date of Service: 02/24/25Follow Up: 1 Year From Orig inal Mammogram Procedure(s): MM tomosynthesis screening BI Accession Number(s): [id number] cc: Roro Stephens GOLF COURSE RANGER; Minor Brown MD EXAMINATION: MM SCREENING DIGITAL BREAST TOMOSYNTHESIS, BILATERAL CLINICAL INFORMATION: Screening. Asymptomatic. COMPARISON: Mammography: Comparison is made with available priors TECHNIQUE: Digital breast mammography with tomosynthesis is performed in both the craniocaudal and mediolateral oblique views along with computer-aided detection (CAD). FINDINGS: The breasts are heterogeneously dense, which may obscure small masses (ACR BI-RADS breast composition Category c). There are no significant masses, abnormal calcifications, or other abnormalities. MM/MM tomosynthesis screening BI IMPRESSION: No mammographic evidence of malignancy. ASSESSMENT: BI-RADS BI-RADS 1 - Negative RECOMMENDATION: Routine annual mammography screening. 1 year F/U This examination should not preclude the clinical evaluation of a suspicious palpable abnormality. This patient's information was entered into a reminder system with a target due date for their next mammogram. Electronically signed by: Renata Ríos DO 03/02/2025 04:43 PM EDT Dictated By: Renata Ríos DO Signed By: <Electronically signed by Renata Ríos DO in OV> 03/02/25 1643 DD/ 1200 TD/TT: 02/24/25 1220 Warp Spinner: [facility] External Provider IMG BI PROCEDURES Edited Result - Final * (ABNORMAL) HPV DNA, Low/High Risk (02/10/2025 11:51 AM EDT) HPV High Risk Negative Negative [facility] HPV Genotype 16 Positive(A) Negative [facility] HPV Genotype 18 Negative Negative [facility] Comment:HPV testing performe d at [facility] (CLIA#[id number]), [address] [place] [address].Testing for HPV was performed using the [employer] ClaimKit0system. The presence of HPV in the female [...] Provider LAB BLOOD ORDERAB LES Final Result Performing Organization Address City/State/[facility] Co de Phone Number [facility] [address] [place] [phone] * Pap Smear (02/10/2025 11:51 AM EDT) 02/10/2025 11:5 1 AM EDT 02/11/2025 7:30 AM EDT Jamila [facility] - 02/17/2025 11:58 AM EDT ----- ------- Name: Livan Snell ?Age/Sex: 54/F ? : 1970 Unit#: [id number] ?? Attend Dr: Minor Brown MD ?Re02/10/25 ?Status: DEP REF ? Location: HO.LNP ?Disch: ? ----- ------- SPEC : [id number] ? RECD: 02/11/25 ? STATUS: ??SOUT ? REQ NUM: [id number] ? SONYA: 02/10/25115 ? SUBM DR: Minor Brown MD ? ENTERED: ??02/11/25 ?SP TYPE: Pap Smr ?OTHR DR: Roro Stephens GOLF COURSE RANGER ? ORDERED: ??Pap Smear ? Interpretation ?? Satisfactory for evaluation. ?? Negative for intraepithelial lesion or malignancy. ? HPV High Risk: ??Negative ? HPV Genotyping 16: ??Positive ?? HPV Genotyping 18: ??Negative ?Clinical Information LMP: postmenopausal Previous PAP test:Unknown date/findings ? Material Received ?? ThinPrep-Cervical Copies To: ?? KatRoro GOLF COURSE RANGER ?? [address] ?? [place] [address] ?? [phone] ?? Minor Brown MD ?? [facility] ?? [address] [facility] [address] ?? [place] [address] ?? [phone] ----- ------- Signed (signature on file) ASHLEIGH Robbins ([facility]) 02/17/25 1158 ? ----- ------- ? END OF REPORT ? us Generic External Data Provider LAB CYTOLOGY MAILEManuel BENSONLAST Final Result [facility] [address] [place] [phone] * HEPATITIS C AB W/REFL TO HCV RNA, QN, PCR (03/08/2022 10:41 AM EDT) HEPATITIS C ANTIBODY NON-REACT [facility] NON-REACT [facility] INDEX 0.03 <1.00 [facility] Comment: ?? HCV antibody was non-reactive. There is no laboratory ?? evidence of HCV infection. ?? In most cases, no further action is required. However, if recent HCV exposure is suspected, a test for HCV RNA (test code 73959) is suggested. ?? For additional information please refer to http://education.MediaBoost.locr/faq/GWU17g3 (This link is being provided for informational/ educational purposes only.) ?? 03/08/2022 10:4 1 AM EDT [facility] GOLF COURSE RANGER HISTORICAL/NON ORDERABLE LABS Final Result Performing Organization Address [facility] de Phone Number [facility] [address] * HIV 1/2 ANTIGEN/ANTIBODY,FOURTH GENERATION W/RFL (03/08/2022 10:41 AM EDT) HIV-1/2 ANTIGEN AND ANTIBODIES, 4TH GENERATION W/ REFLEX NON-REACT CARMINA NON-REACT CARMINA [facility] Comment: HIV-1 antigen and HIV-1/HIV-2 [...] ? For additional information please refer to http://education.MediaBoost.locr/faq/DRB904 (This link is being provided for informational/ educational purposes only.) ? The performance of this assay has not been clinically validated in patients less than 2 years old. ?? 03/08/2022 10:4 1 AM EDT [facility] LAB BLOOD ORDERABLES Final Re sult Performing Organization Address [facility] de Phone Number [facility] [address] from Last 3 Months or Most Recently Relevant to Health Maintenance Insurance , [address] [place] [address] BS Care Teams Nuclear Radiation Engineer Relationship Specialty Start Date End Date Roro Stephens FNP [address] [place] [address] PCP - General Family Medicine 02/09/22
--- OUTSIDE RECORDS SUMMARY | 2025-03-24 13:24 | XMS_ITS | Encounter Summary ---
Author Organization [employer] Address [address] [place] [address] 7t [place] [address] Care Team Providers Care Drilling Field Specialist Name Role Phone [facility] Primary Care Provider [phone] Encounter Details Date Type Department Care Team ([facility] st Contact Info) Description 05/29/2023 Abstract [facility] MEDICINE [address] [place] [address] JoannaRoro schroeder [facility] [address] [place] [address] Social History Tobacco Use Types Packs/Day Years [...] documented as of this encounter Care Teams Drilling Field Specialist Relationship Specialty Start Date End Date Roro Stephens FNP [address] [place] [address] PCP - General Family Medicine 02/09/22 documented as of this encounter
--- OUTSIDE RECORDS SUMMARY | 2025-03-24 13:24 | XMS_ITS | Data Portability ---
Author Organization [facility], Primary [facility] Address [address] [address] Assessment No assessment recorded. Plan of Treatment [...] D, 25-hydrox y, total, serum 2024 026 [facility], [address] [place] [address], [id number], 01/03/2025 10:33:21 HbA1c (hemoglob in A1c), blood 2024 026 [facility], [address] [place] [address], [id number], 01/03/2025 10:33:21 TSH, serum, reflex free T4 2024 026 [facility], [address] [place], [address], 01/03/2025 10:33:21 CMP, serum or plasma 2024 026 [facility], [address] [place] [address], [id number], 01/03/2025 10:33:21 CBC w/ auto diff 2024 026 [facility], [address] [place], [address], 01/03/2025 10:33:21 lipid panel, serum 2024 026 [facility], [address] [place] [address], [address], 01/03/2025 10:33:21 vitamin B12, serum 2024 026 [facility], [address] [place] [address], [id number], 01/03/2025 10:33:21 magnesium , serum or plasma 2024 026 [facility], [address] [place] [address], [address], 01/03/2025 10:33:21 Referral gastroent erologist referral 2024 025 [email or web address] [facility] ([facility]), [address] [place] [address], [id number], 01/12/2025 13:05:34 Procedures None recorded. Surgeries None recorded. Imaging None recorded. Medication Orders None recorded. Patient TargetsNo targets recorded. Patient InstructionsNo instructions recorded. 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 for malignant neoplasm of colon Referring Physician: Amanda King, Internal Medicine, Encounter Date: 01/03/2025 Results Created Date Observation Date Name Description Value Unit Range Abnormal Flag Note LastModifiedBy Organization Detail LastModifiedTime 01/06/2001/06/2025 COMPL ETE BLOOD COUNT AUTO DIFF white blood count 4.5 /cumm 4.8-10 .8 low Not Available [address], [address], 01/06/2025 14:44:37 01/06/20 25 01/06/2025 COMPL ETE BLOOD COUNT AUTO DIFF red blood count 4.69 /cumm 4.20-5 .40 normal Not Available [address], [address], 01/06/2025 14:44:37 01/06/20 25 01/06/2025 COMPL ETE BLOOD COUNT AUTO DIFF hemoglobin 14.2 g/dL 12.0-1 6.0 normal Not Available [facility] [address] [place], [address], 01/06/2025 14:44:37 01/06/20 25 01/06/2025 COMPL ETE BLOOD COUNT AUTO DIFF hematocrit 43.3 % 37-47 normal Not Available [facility] [address] [place], [address], 01/06/2025 14:44:37 01/06/20 25 01/06/2025 COMPL ETE BLOOD COUNT AUTO DIFF mean corpuscular volume 92.3 fL 80.0-9 6.0 normal Not Available [facility] [address] [place] [address], [address], 01/06/2025 14:44:37 01/06/20 25 01/06/2025 COMPL ETE BLOOD COUNT AUTO DIFF mean corpuscular hemoglobin 30.3 pg 27.0-3 1.0 normal Not Available [facility] [address] [place], [address], 01/06/2025 14:44:37 01/06/20 25 01/06/2025 COMPL ETE BLOOD COUNT AUTO DIFF mean corpuscular HGB conc 32.8 g/dL 32.0-3 7.0 normal Not Available [facility] [address] [place], [address], 01/06/2025 14:44:37 01/06/20 25 01/06/2025 COMPL ETE BLOOD COUNT AUTO DIFF red cell distribution width 12.0 % 11.5-1 4.5 normal Not Available [facility] [address] [place] [address], [address], 01/06/2025 14:44:37 01/06/20 25 01/06/2025 COMPL ETE BLOOD COUNT AUTO DIFF platelet count 272 /cumm 140-44 0 normal Not Available [facility] [address] [place], [address], 01/06/2025 14:44:37 01/06/20 25 01/06/2025 COMPL ETE BLOOD COUNT AUTO DIFF mean platelet volume 10.4 fL 7.4-12 .0 normal Not Available [facility] [address] [place], [address], 01/06/2025 14:44:37 01/06/20 25 01/06/2025 COMPL ETE BLOOD COUNT AUTO DIFF granulocytes percent auto 40.3 % 40.0-7 2.0 normal Not Available [facility] [address] [place] [address], [address], 01/06/2025 14:44:37 01/06/20 25 01/06/2025 COMPL ETE BLOOD COUNT AUTO DIFF lymphocytes percent auto 33.6 % 20.0-5 1.0 normal Not Available [facility] [address] [place], [address], 01/06/2025 14:44:37 01/06/20 25 01/06/2025 COMPL ETE BLOOD COUNT AUTO DIFF monocytes percent auto 13.1 % 1.0-13 .0 high Not Available [facility] [address] [place], [address], 01/06/2025 14:44:37 01/06/20 25 01/06/2025 COMPL ETE BLOOD COUNT AUTO DIFF eosinophils percent auto 11.3 % 0-7.0 high Not Available [facility] [address] [place], [address], 01/06/2025 14:44:37 01/06/20 25 01/06/2025 COMPL ETE BLOOD COUNT AUTO DIFF basophils percent auto 1.3 % 0-2.0 normal Not Available [facility] [address] [place], [address], 01/06/2025 14:44:37 01/06/20 25 01/06/2025 COMPL ETE BLOOD COUNT AUTO DIFF immature granulocyte percent 0.4 % 0-1.0 normal Not Available [facility] [address] [place], [address], 01/06/2025 14:44:37 01/06/20 25 01/06/2025 COMPL ETE BLOOD COUNT AUTO DIFF granulocytes absolute auto 1.8 /cumm 1.0-7. 0 normal Not Available [facility] [address] [place], [address], 01/06/2025 14:44:37 01/06/20 25 01/06/2025 COMPL ETE BLOOD COUNT AUTO DIFF lymphocytes absolute auto 1.5 /cumm 1.0-4. 0 normal Not Available [facility] [address] [place], [address], 01/06/2025 14:44:37 01/06/20 25 01/06/2025 COMPL ETE BLOOD COUNT AUTO DIFF monocytes absolute auto 0.6 /cumm 0-1.0 normal Not Available [facility] [address] [place], [address], 01/06/2025 14:44:37 01/06/20 25 01/06/2025 COMPL ETE BLOOD COUNT AUTO DIFF eosinophils absolute auto 0.5 /cumm 0-1.0 normal Not Available [facility] [address] [place], [address], 01/06/2025 14:44:37 01/06/20 25 01/06/2025 COMPL ETE BLOOD COUNT AUTO DIFF basophils absolute auto 0.1 /cumm 0-0.2 normal Not Available [facility] [address] [place], [address], 01/06/2025 14:44:37 01/06/20 25 01/06/2025 COMPL ETE BLOOD COUNT AUTO DIFF immature gran absolute auto 0.0 /cumm 0-0.3 normal Not Available [facility] [address] [place], [address], 01/06/2025 14:44:37 01/06/20 25 01/06/2025 COMPR EHENS CARMINA METAB OLIC PANEL glucose 96 mg/dL 74-106 normal Not Available [facility] [address] [place] [address], [address], 01/06/2025 15:22:32 01/06/20 25 01/06/2025 COMPR EHENS CARMINA METAB OLIC PANEL BUN 14.6 mg/dL 9-23 normal Not Available [facility] [address] [place], [address], 01/06/2025 15:22:32 01/06/20 25 01/06/2025 COMPR EHENS CARMINA METAB OLIC PANEL creatinine 0.66 mg/dL 0.55-1 .02 normal Not Available [facility] [address] [place], [address], 01/06/2025 15:22:32 01/06/20 25 01/06/2025 COMPR EHENS CARMINA METAB OLIC PANEL BUN creatinine ratio 22 % 7-25 normal Not Available [facility] [address] [place], [address], 01/06/2025 15:22:32 01/06/20 25 01/06/2025 COMPR EHENS CARMINA METAB OLIC PANEL estimated glomerular filt rate > 60.0 mL/mi n >60 normal Not Available [facility] [address] [place], [address], 01/06/2025 15:22:32 01/06/20 25 01/06/2025 COMPR EHENS CARMINA METAB OLIC PANEL estimated GFR ( reji > 60 mL/mi n >60 normal Not Available [facility] [address] [place], [address], 01/06/2025 15:22:32 01/06/20 25 01/06/2025 COMPR EHENS CARMINA METAB OLIC PANEL sodium 145 mmol/ L 136-14 5 normal Not Available [facility] [address] [place], [address], 01/06/2025 15:22:32 01/06/20 25 01/06/2025 COMPR EHENS CARMINA METAB OLIC PANEL potassium 4.4 mmol/ L 3.5-5. 1 normal Not Available [facility] [address] [place] [address], [address], 01/06/2025 15:22:32 01/06/20 25 01/06/2025 COMPR EHENS CARMINA METAB OLIC PANEL chloride 109 mmol/ L 98-107 high Not Available [facility] [address] [place], [address], 01/06/2025 15:22:32 01/06/20 25 01/06/2025 COMPR EHENS CARMINA METAB OLIC PANEL carbon dioxide 28 mmol/ L 20-31 normal Not Available [facility] [address] [place] [address], [address], 01/06/2025 15:22:32 01/06/20 25 01/06/2025 COMPR EHENS CARMINA METAB OLIC PANEL anion gap 7.8 mmol/ L 5-16 normal Not Available [facility] [address] [place], [address], 01/06/2025 15:22:32 01/06/20 25 01/06/2025 COMPR EHENS CARMINA METAB OLIC PANEL calcium 9.8 mg/dL 8.7-10 .4 normal Not Available [facility] [address] [place] [address], [address], 01/06/2025 15:22:32 01/06/20 25 01/06/2025 COMPR EHENS CARMINA METAB OLIC PANEL total protein 6.9 g/dL 5.7-8. 2 normal Not Available [facility] [address] [place] [address], [address], 01/06/2025 15:22:32 01/06/20 25 01/06/2025 COMPR EHENS CARMINA METAB OLIC PANEL albumin level 4.5 g/dL 3.2-4. 8 normal Not Available [facility] [address] [place], [address], 01/06/2025 15:22:32 01/06/20 25 01/06/2025 COMPR EHENS CARMINA METAB OLIC PANEL globulin 2.4 g/dL 1.9-4. 1 normal Not Available [facility] [address] [place], [address], 01/06/2025 15:22:32 01/06/20 25 01/06/2025 COMPR EHENS CARMINA METAB OLIC PANEL albumin globulin ratio 1.9 % 1.1-2. 2 normal Not Available [facility] [address] [place], [address], 01/06/2025 15:22:32 01/06/20 25 01/06/2025 COMPR EHENS CARMINA METAB OLIC PANEL bilirubin,to jah 0.3 mg/dL 0.3-1. 2 normal Not Available [facility] [address] [place], [address], 01/06/2025 15:22:32 01/06/20 25 01/06/2025 COMPR EHENS CARMINA METAB OLIC PANEL alkaline phosphatase 90 U/L 46-110 normal Not Available [facility] [address] [place], [address], 01/06/2025 15:22:32 01/06/20 25 01/06/2025 COMPR EHENS CARMINA METAB OLIC PANEL aspartate amino transferase 21 U/L 0.0-33 .9 normal Not Available [facility] [address] [place], [address], 01/06/2025 15:22:32 01/06/20 25 01/06/2025 COMPR EHENS CARMINA METAB OLIC PANEL alanine aminotransfe rase 27 U/L 10-49 normal Not Available [facility] [address] [place], [address], 01/06/2025 15:22:32 01/06/20 25 01/06/2025 LIPID PANEL cholesterol 205 mg/dL <200 high Not Available [facility] [address] [place], [address], 01/06/2025 15:22:34 01/06/20 25 01/06/2025 LIPID PANEL triglyceride s 98 mg/dL <150 normal Not Available [facility] [address] [place], [address], 01/06/2025 15:22:34 01/06/20 25 01/06/2025 LIPID PANEL HDL cholesterol 42.4 mg/dL 40-60 normal Not Available [facility] [address] [place], [address], 01/06/2025 15:22:34 01/06/20 25 01/06/2025 LIPID PANEL LDL cholesterol calculated 142.6 mg/dL 65-129 high Not Available [facility] [address] [place], [address], 01/06/2025 15:22:34 01/06/20 25 01/06/2025 LIPID PANEL chol HDL ratio 4.80 % 0.00-4 .23 high Not Available [facility] [address] [place], [address], 01/06/2025 15:22:34 01/06/20 25 01/06/2025 VITAM IN B12 vitamin B12 703 pg/mL 211-91 1 normal Not Available [facility] [address] [place], [address], 01/06/2025 15:22:35 01/06/20 25 01/06/2025 FREE T4 FREE THYRO XINE free T4 free thyroxine 0.89 NG/dL 0.89-1 .76 normal Not Available [facility] [address] [place], [address], 01/06/2025 15:22:37 01/06/20 25 01/06/2025 TSH WITH REFLE X FT4/T T3 TSH with reflex FT4/TT3 4.669 uIU/m L 0.48-4 .17 high Not Available [facility] [address] [place], [address], 01/06/2025 15:22:38 01/06/20 25 01/06/2025 VITD 25 HYDRO XY vitd 25 hydroxy 32.8 NG/mL 30-100 normal Not Available [facility] [address] [place], [address], 01/06/2025 15:22:40 01/06/20 25 01/07/2025 HEMOG LOBIN A1C hemoglobin A1C 5.7 % 4.2-5. 8 normal Not Available [facility] [address] [place], [address], 01/07/2025 10:25:27 Result Notes None recorded. Problems Name Problem SNOMED Code Status Onset Date Resolution Date Notes Provider Name and Address Organization Details Recorded Time Vitamin D deficiency 15287120 Active 2024 Amanda King APRN [address], [place], [address], [facility] 09:32:18 Mild intermittent asthma 243484549 Active 2024 Amanda King APRN [address], [place], [address], [facility] 5 10:21:03 Problem Notes None recorded. Procedures Surgical History Date Name Laterality Status Provider Name and Address Organization Details Recorded Time 11/19/1983 Other completed Martha Chadwick [facility] 01/03/2025 10:14:49 Imaging Results [...] active Not Available Not Available Not Available [employer] 1,000 mg capsule Take 1 capsule [...] /min 98 % 98 % 16 /min 66830.0 8 g 31.9 kg/m2 154.31 cm 110 mm[Hg] 70 mm[Hg] Martha SOTELO [facility], [facility] 10:09:48 Social History Question Answer Notes LastModified by [facility] Details LastModified Time Tobacco Smoking Status Never Smoker ASHLEIGH Perez [facility], [facility] 01/03/2025 10:14:00 Do You Have An Advance Directive? No Information not available 01/03/2025 Are You Blind Or Do You Have Difficulty Seeing? No Information not available 01/03/2025 Are You Deaf Or Do You Have Serious Difficulty Hearing? No Information not available 01/03/2025 Do You Feel Safe At Home? Yes Information not available 01/03/2025 Do You Have A Medical Power Of Museum Specialist? No Information not available 01/03/2025 What Was [...] SNOMED-CT Code Diagnosis ICD10 Code Diagnosis Note [id number] Amanda King APRN Primary Care [address] [address] 01/03/2025 10:00:17 01/03/2025 10:35:05 Adult health examination 699738994 Z00.00 flu declinestd ap duemammogr am has upcoming appt 01/2025Gyn has upcoming appt 01/20251597PWA8 0colonosco py referral entered Vitamin D deficiency 347 18481 E55.9 Screening for malignant neoplasm of colon 533082786 Z12.11 Depression screening 171 866758 Z13.31 Screening for depression - completed PHQ9. 5 to 15 minutes time spent to: Administer a screening tool Interpret the results Use the results as appropriat e Screening for malignant neoplasm of breast 978136547 Z12.January Screening for malignant neoplasm of cervix 220891105 Z12.4 2024 Mild inter mittent asthma 074762356 J45.20 montelukas t and cetirizine Health Concerns Section Related Observation LastModified by Organization Detai ls LastModified Time None Recorded Concern Status LastModified by Organization Details LastModified Time None Recorded Advance Directives Directive N: Payers Encounter Date Sequence Insurance Name Policy Number Policy Monsalve Covered Member ID Monsalve Member ID Guarantor Name 01/03/2025 1 [place] [employer] (PPO) [id number] Livan Sutton [id number] Livan Sutton Notes Date Note Type Note [...] Medical History:- Asthma- Allergies- Menopause- Works at [employer], standing 10 hours/dayMedicatio ns:- Montelukast (prescribed for 3 months)- Cetirizine- Vitamin C- Vitamin D- Evening primrose oilObjective:- Alert and oriented- Speaking in mix of Lebanese and Slovak, good comprehensionAsses sment:- Routine wellness exam- Menopausal symptoms- Constipation, well-managed with natural remediesPlan:- Labs ordered for next week (01/08/2025):- CBC- CMP- Lipid panel- TSH- HbA1C- B12- Vitamin D- Magnesium- GI referral for colonoscopy- Gynecology follow-up next month- Return in 1 year for annual wellness visit- Will contact if any abnormal results- Portal messaging available for questions/concerns Amanda King, JENNIFER [address], [place], [address], [place] [facility] 01/03/2025 12:09:49 OBGyn Episode No OBEpisode recorded.
--- OUTSIDE RECORDS SUMMARY | 2025-03-24 13:24 | XMS_ITS | Encounter Summary ---
Author Organization [employer] Address [address] [place] [address] [address] [place] [address] Care Team Providers Care Machine Shop Helper Name Role Phone [place] [facility] Primary Care Provider [phone] Encounter Details Date Type Department Care Team ([facility] st Contact Info) Description 05/29/2023 Abstract [facility] [address] [place] [address] RiddletonRoro schroeder [facility] [address] [place] [address] Social History Tobacco Use Types Packs/Day Years [...] documented as of this encounter Care Teams Machine Shop Helper Relationship Specialty Start Date End Date Roro Stephens FNP [address] [place] [address] PCP - General Family Medicine 02/09/22 documented as of this encounter
== END 2025-03-24 12:17 | disposition home or self-care (01) ==
LOC: HO.HWS 11:48
PROVIDERS: PCP Registered Nurse; Visit Provider Obstetrics & Gynecology
DX: R87.810 Cervical high risk human papillomavirus (HPV) DNA test positive (principal)
CPT/HCPCS: 57454

== ENCOUNTER 2025-04-14 10:18 | Outpatient (AMB) | payer BC, SELFPAY ==
--- NOTE | 2025-04-14 10:19 | MHC.OFFVIS ---
Intake Visit Reasons: colpo results Allergies No Known Allergies Allergy (Verified 03/24/25 11:51) HPI Comments Details: The patient is scheduled a telehealth visit post colpo for follow-up. The patient is doing well with no complaints. The pathology showed the following: A. Endocervix, curettage: Scant squamous and rare endocervical glandular epithelium; negative for dysplasia. B. Cervix, 4:00, biopsy: Squamous and scant endocervical glandular mucosa; negative for dysplasia. C. Cervix, 6:00, biopsy: Squamous mucosa with reactive and atrophic changes, and focal biopsy site changes; negative for dysplasia D. Cervix, 12:00, biopsy: Squamous and endocervical glandular mucosa; negative for dysplasia PFSH Medical History Cervical high risk HPV (human papillomavirus) test positive Asthma Gastritis Surgical History H/O colonoscopy Hx of adenoidectomy Hx of tonsillectomy Family History Mother HTN (hypertension) Uterine cancer Father No problems noted. Social History Household Members: Significant Other Alcohol intake: current Alcohol intake frequency: does not drink Patient Tobacco Use Status: Never used Tobacco Current occupational status: employed Current occupation: [employer] x 2-3years Sexual orientation: Straight/Heterosexual Gender identity: Female Review of Systems Const All systems reviewed & are unremarkable except as noted in HPI and below Reports as per HPI and Reports no additional complaints GI Reports no additional complaints Reports no additional complaints Telehealth Telehealth Telehealth Platform: Telephone Location of provider rendering services: practice address Location of patient: address on file Patient Identification confirmed using: Name, : Yes Telehealth method: video Patient verbally consented to treatment: Yes Patient verbally consented to billing insurance company: Yes Patient informed of any privacy concerns related to visit: Yes Minutes spent on Phone/Video with Pt.: 3 Assessment & Plan Assessment & Plan (1) Cervical high risk HPV (human papillomavirus) test positive: Comment: Normal Pap/HPV 16 positive 05/11 Pap negative/HPV positive, colpo biopsy ECC negative Code(s): R87.810 - Cervical high risk human papillomavirus (HPV) DNA test positive Category: Medical Plan: Discussed with the patient the pathology results of the colposcopy biopsies & endocervical curettage. Discussed with the patient the sensitivity specificity, positive and negative predictive value in detecting cervical cancer in addition discussed the regression, persistence and progression rates. Recommended co-testing in 12 months, if cytology and or HPV are abnormal will proceed was colposcopy biopsy and endocervical curettage. Instructions given to the patient to schedule a co test appointment in 1 year. All questions answered the patient verbalized understanding. I spent a total of 20 minutes reviewing the chart, talking to the patient via video and documenting in the medical record. Coding Level of Care Code Tele Est Pt Level 3 (91384) Diagnoses Cervical high risk HPV (human papillomavirus) test positive R87.810
--- OUTSIDE RECORDS SUMMARY | 2025-04-14 11:02 | XMS_ITS | Clinical Summary ---
Author Organization [facility] Address [address] [place] [address] Care Team Providers Care Quality Control Assistant Name Role Phone Unknown Primary Care Provider [phone] Allergies No known active allergies Medications OMEprazole [...] Zoster (Shingles) Vaccine (1 of 2) 2022 COVID-19 Vaccine (1 - 2024- season) 2024 Influenza Vaccine 06/19/2025 Insurance [facility] - PPO Care Teams Quality Control Assistant Relationship Specialty Start Date End Date Unknown Unknow Provider Address PCP - General 10/02/24
== END 2025-04-14 10:47 | disposition home or self-care (01) ==
LOC: HO.HWS 10:18
PROVIDERS: PCP Registered Nurse; Visit Provider Obstetrics & Gynecology
DX: R87.810 Cervical high risk human papillomavirus (HPV) DNA test positive (principal)
CPT/HCPCS: 99213

== ENCOUNTER → 2025-04-14 10:18 | Outpatient (BNVA) | payer BC, SELFPAY | PROVIDERS: PCP Registered Nurse; Visit Provider Obstetrics & Gynecology ==